=== PATIENT | female | born 1930 | race Caucasian/White ===

== ENCOUNTER 2016-12-07 03:47 | Inpatient (IN) | payer MEDICARE ==
[~2016-12-07] VITALS: Ht 167.6 cm; Wt 81.6 kg
[~2016-12-07 03:47] MED LIST: ALDACTONE25 M1 PO; AMIODARONE HCL200 MG PO; AMIODARONE HCL400 MG PO; ANUSOL-HC25 MG R; ASPIR-LOW81 MG PO; ASPIRIN ADULT L81 M1 PO; ASPIRIN EC325 MG; ASPIRIN325 MG PO; ASPIRIN81 M1 PO; BACTRIM 400 MG-1 TAB PO; BUMEX1 MG PO; CARDIZEM120 MG PO; CARDIZEM30 MG PO; CENTRUM SILVER1 TA1 PO; CENTRUM SINGLE400 IU; CENTRUM1 TAB PO; CIPROFLOXACIN500 MG PO; COUMADIN0.5 MG PO; COUMADIN2.5 M1 PO; COUMADIN3 M1 PO; COUMADIN5 M1 PO; COUMADIN5 M2 PO; COUMADIN6 M1 PO; COUMADIN6 M2 PO; COUMADIN6 MG PO; COZAAR100 MG PO; COZAAR50 MG; DILT-CD180 MG PO; DULCOLAX5 MG PO; FELODIPINE5 MG; FELODIPINE5 MG PO; INDERAL20 MG PO; INDERAL40 MG PO; K-DUR 20MEQ20 MEQ PO; LANTUS SOLOS100 U/ML SC; LANTUS100 U/ML SC; LANTUS100 U/ML SQ; LEVOTHYROXIN0.025 MG PO; LOMOTIL,LONOX 01 TAB PO; LOPRESSOR100 MG PO; LOSARTAN POTASS50 M1 PO; LOVASTATIN40 MG; LOVASTATIN40 MG PO; MACROBID100 M1 PO; MOM30 M1 PO; OSCAL,OYSTER S500 MG; Oscal,Oyster S500 MG PO; PHENERGAN25 M1 PO; PLENDIL5 MG PO; POTASSIUM20 MEQ PO; PRILOSEC20 MG PO; PROPAFENONE HC225 MG PO; PROPANOLOL; PROPRANOLOL HCL20 M1 PO; PYRIDIUM200 MG PO; SYNTHROID,LEVO25 MCG PO; TAMBOCOR100 MG PO; TYLENOL325 M1 PO; ULTRAM50 MG PO; VITAMIN D1000 IU PO; VITAMIN D2400 IU; VITAMIN D400 IU PO; VITAMIN D50000 I2; WARFARIN SODIU7.5 MG PO
[2016-12-07 03:49] VITALS: BP 147/71
[2016-12-07] MEDS ORDERED: BUMETANIDE1 MG PO (03:59)
[2016-12-07 04:19] LABS: BASO % 0.2 % (0.0-1.0); EOS # 0.2 10*3/uL (0.0-0.4); EOS % 1.5 % (1.0-4.0); HEMATOCRIT 42.3 % (37.0-47.0); HEMOGLOBIN 14.8 g/dl (12.0-16.0); LYMPH % 7.9 % (27.0-41.0); MEAN CELL VOLUME 88.7 fl (81.0-99.0); MEAN PLATELET VOLUME 13.2 fl (9.6-12.3); MONO # 0.9 10*3/uL (0.1-1.0); MONO % 7.1 % (3.0-9.0); NEUT # 10.2 10*3/uL (2.3-7.9); NEUT % 83.1 % (47.0-73.0); PLATELET COUNT AUTOMATED 208 10*3/uL (130-400); RED BLOOD COUNT 4.77 10*6/uL (4.10-5.10); RED CELL DISTRI WIDTH 14.1 % (0-14.5); WHITE BLOOD COUNT 12.3 10*3/uL (4.8-10.8)
[2016-12-07 05:06] LABS: BILIRUBIN NEGATIVE (NEGATIVE); BLOOD 1+ (NEGATIVE); CLARITY CLEAR (CLEAR); COLOR YELLOW (YELLOW); GLUCOSE NEGATIVE (NEGATIVE); KETONE TRACE (NEGATIVE); LEUKO ESTERASE NEGATIVE (NEGATIVE); NITRITE NEGATIVE (NEGATIVE); PROTEIN TRACE (NEGATIVE); UROBILINOGEN 0.2 E.U./dl (0.2-1.0)
[2016-12-07 05:09] LABS: ALBUMIN 3.5 gm/dl (3.1-4.5); BILIRUBIN, TOTAL 0.4 mg/dl (0.2-1.0); POTASSIUM 3.7 mmol/L (3.5-5.1); TOTAL PROTEIN 7.2 gm/dL (6.4-8.2)
[2016-12-07 05:11] LABS: EPITHELIAL CELLS 20-25
[2016-12-07 05:12] LABS: URINE REFLEX COMMENT YES (NO)
[2016-12-07 05:50] VITALS: BP 124/55
[2016-12-07 07:01] VITALS: BP 124/66
[2016-12-07 12:00] VITALS: BP 148/88
== END 2016-12-07 13:01 | disposition home or self-care (01) | DRG 392 ==
LOC: ED 03:47 → EDHOLD 05:33 → 4E 08:47
PROVIDERS: Emergency Medicine
DX: K52.9 Noninfective gastroenteritis and colitis, unspecified (principal); E10.22 Type 1 diabetes mellitus with diabetic chronic kidney disease; D68.69 Other thrombophilia; I13.0 Hypertensive heart and chronic kidney disease with heart failure and stage 1 through stage 4 chronic kidney disease, or unspecified chronic kidney disease; E10.65 Type 1 diabetes mellitus with hyperglycemia; N18.3 Chronic kidney disease, stage 3 (moderate); I50.32 Chronic diastolic (congestive) heart failure; I48.0 Paroxysmal atrial fibrillation; E78.5 Hyperlipidemia, unspecified; E55.9 Vitamin D deficiency, unspecified; K44.9 Diaphragmatic hernia without obstruction or gangrene; Z90.49 Acquired absence of other specified parts of digestive tract; Z90.710 Acquired absence of both cervix and uterus; Z95.0 Presence of cardiac pacemaker; Z88.1 Allergy status to other antibiotic agents; Z88.8 Allergy status to other drugs, medicaments and biological substances; Z88.2 Allergy status to sulfonamides; Z82.49 Family history of ischemic heart disease and other diseases of the circulatory system

== ENCOUNTER 2017-01-29 14:01 | Emergency (ER) | payer MEDICARE ==
[~2017-01-29] VITALS: Ht 160 cm; Wt 81.6 kg
[~2017-01-29 14:01] MED LIST changes: +BUMETANIDE1 MG PO
[2017-01-29 14:06] VITALS: BP 135/85
[2017-01-29 14:59] LABS: BASO % 0.3 % (0.0-1.0); EOS # 0.2 10*3/uL (0.0-0.4); EOS % 2.6 % (1.0-4.0); HEMATOCRIT 39.2 % (37.0-47.0); HEMOGLOBIN 13.2 g/dl (12.0-16.0); LYMPH # 1.2 10*3/uL (1.3-4.4); LYMPH % 19.1 % (27.0-41.0); MEAN CELL VOLUME 91.2 fl (81.0-99.0); MEAN CORPUSCULAR HGB 30.7 pg (27.0-31.0); MEAN CORPUSCULAR HGB CONC 33.7 g/dl (33.0-37.0); MEAN PLATELET VOLUME 10.6 fl (9.6-12.3); MONO # 0.5 10*3/uL (0.1-1.0); MONO % 8.1 % (3.0-9.0); NEUT # 4.5 10*3/uL (2.3-7.9); NEUT % 69.6 % (47.0-73.0); PLATELET COUNT AUTOMATED 145 10*3/uL (130-400); RED CELL DISTRI WIDTH 13.4 % (0-14.5); WHITE BLOOD COUNT 6.4 10*3/uL (4.8-10.8)
[2017-01-29 15:07] LABS: PROTHROMBIN TIME 34.1 SECONDS (9.0-12.4)
== END 2017-01-29 15:20 | disposition home or self-care (01) ==
LOC: ED 14:01
PROVIDERS: Physician Assistant
DX: R04.0 Epistaxis (principal); Z79.01 Long term (current) use of anticoagulants; Z95.0 Presence of cardiac pacemaker; Z90.49 Acquired absence of other specified parts of digestive tract; Z88.1 Allergy status to other antibiotic agents; Z88.2 Allergy status to sulfonamides; Z79.82 Long term (current) use of aspirin; Z79.899 Other long term (current) drug therapy

== ENCOUNTER → 2017-02-05 | Outpatient (CLI) | payer MEDICARE ==
[2017-02-05 09:50] LABS: BASO % 0.5 % (0.0-1.0); EOS # 0.2 10*3/uL (0.0-0.4); EOS % 3.4 % (1.0-4.0); HEMATOCRIT 43.1 % (37.0-47.0); HEMOGLOBIN 14.4 g/dl (12.0-16.0); LYMPH % 18.3 % (27.0-41.0); MEAN CELL VOLUME 91.7 fl (81.0-99.0); MEAN CORPUSCULAR HGB 30.6 pg (27.0-31.0); MEAN CORPUSCULAR HGB CONC 33.4 g/dl (33.0-37.0); MEAN PLATELET VOLUME 10.4 fl (9.6-12.3); MONO # 0.5 10*3/uL (0.1-1.0); MONO % 8.7 % (3.0-9.0); NEUT # 3.8 10*3/uL (2.3-7.9); NEUT % 68.7 % (47.0-73.0); PLATELET COUNT AUTOMATED 180 10*3/uL (130-400); RED CELL DISTRI WIDTH 13.5 % (0-14.5); WHITE BLOOD COUNT 5.5 10*3/uL (4.8-10.8)
[2017-02-05 10:10] LABS: HEMOGLOBIN A1c 8.6 % (4.8-5.6)
[2017-02-05 10:25] LABS: INTERNATIONAL NORM RATIO 2.3 (2.0-3.5); PROTHROMBIN TIME 25.7 SECONDS (9.0-12.4)
[2017-02-05 10:31] LABS: ALBUMIN 3.6 gm/dl (3.1-4.5); BILIRUBIN, TOTAL 0.5 mg/dl (0.2-1.0); POTASSIUM 4.5 mmol/L (3.5-5.1); TOTAL PROTEIN 7.9 gm/dL (6.4-8.2)
[2017-02-05 10:37] LABS: THYROID STIM HORMONE (HS) 1.9 uIU/ml (0.358-4.75)
== END ==
LOC: LAB 09:20
PROVIDERS: Nurse Practitioner Family
DX: E11.9 Type 2 diabetes mellitus without complications (principal); I10 Essential (primary) hypertension; I48.0 Paroxysmal atrial fibrillation; E03.9 Hypothyroidism, unspecified

== ENCOUNTER → 2017-03-03 | Outpatient (CLI) | payer MEDICARE ==
[2017-03-03 16:36] LABS: INTERNATIONAL NORM RATIO 2.5 (2.0-3.5); PROTHROMBIN TIME 27.5 SECONDS (9.0-12.4)
== END | disposition home or self-care (01) ==
LOC: LAB 15:06
PROVIDERS: Nurse Practitioner Family
DX: I48.91 Unspecified atrial fibrillation (principal)

== ENCOUNTER → 2017-04-07 | Outpatient (CLI) | payer MEDICARE ==
[2017-04-07 11:40] LABS: INTERNATIONAL NORM RATIO 2.1 (2.0-3.5)
== END | disposition home or self-care (01) ==
LOC: LAB 10:37
PROVIDERS: Nurse Practitioner Family
DX: I48.91 Unspecified atrial fibrillation (principal)

== ENCOUNTER → 2017-04-30 | Outpatient (CLI) | payer MEDICARE ==
[2017-04-30 11:05] LABS: INTERNATIONAL NORM RATIO 2.2 (2.0-3.5)
== END | disposition home or self-care (01) ==
LOC: LAB 10:13
PROVIDERS: Nurse Practitioner Family
DX: I48.0 Paroxysmal atrial fibrillation (principal); Z79.01 Long term (current) use of anticoagulants

== ENCOUNTER → 2017-05-16 | Outpatient (CLI) | payer MEDICARE ==
[2017-05-16 11:34] LABS: BILIRUBIN NEGATIVE (NEGATIVE); BLOOD TRACE-INTACT (NEGATIVE); CLARITY SL CLOUDY (CLEAR); COLOR YELLOW (YELLOW); GLUCOSE NEGATIVE (NEGATIVE); KETONE NEGATIVE (NEGATIVE); LEUKO ESTERASE NEGATIVE (NEGATIVE); NITRITE NEGATIVE (NEGATIVE); UROBILINOGEN 0.2 E.U./dl (0.2-1.0)
[2017-05-16 11:39] LABS: BASO % 0.6 % (0.0-1.0); EOS # 0.1 10*3/uL (0.0-0.4); EOS % 2.6 % (1.0-4.0); HEMATOCRIT 39.3 % (37.0-47.0); LYMPH # 1.1 10*3/uL (1.3-4.4); LYMPH % 22.2 % (27.0-41.0); MEAN CELL VOLUME 92.3 fl (81.0-99.0); MEAN CORPUSCULAR HGB 30.5 pg (27.0-31.0); MEAN CORPUSCULAR HGB CONC 33.1 g/dl (33.0-37.0); MEAN PLATELET VOLUME 10.1 fl (9.6-12.3); MONO # 0.4 10*3/uL (0.1-1.0); MONO % 8.9 % (3.0-9.0); NEUT # 3.3 10*3/uL (2.3-7.9); NEUT % 65.5 % (47.0-73.0); PLATELET COUNT AUTOMATED 159 10*3/uL (130-400); RED BLOOD COUNT 4.26 10*6/uL (4.10-5.10); RED CELL DISTRI WIDTH 13.5 % (0-14.5)
[2017-05-16 11:43] LABS: URINE CREATININE RANDOM 30.9 mg/dL
[2017-05-16 11:50] LABS: RBC 0-2 rbc/hpf (0-2)
[2017-05-16 12:07] LABS: ALBUMIN 3.6 gm/dl (3.1-4.5); CREATININE 1.44 mg/dL (0.55-1.02); PHOSPHOROUS 3.5 mg/dL (2.5-4.9); POTASSIUM 4.3 mmol/L (3.5-5.1)
[2017-05-16 12:57] LABS: PTH INTACT 107.4 pg/mL (14.0-72.0); VITAMIN D, 25-HYDROXY 32.8 ng/mL (30-100)
== END | disposition home or self-care (01) ==
LOC: LAB 11:08
PROVIDERS: Internal Medicine Nephrology
DX: N18.3 Chronic kidney disease, stage 3 (moderate) (principal); N25.81 Secondary hyperparathyroidism of renal origin; Z79.899 Other long term (current) drug therapy

== ENCOUNTER → 2017-05-20 | Outpatient (CLI) | payer MEDICARE ==
[2017-05-20 08:22] LABS: BASO % 0.8 % (0.0-1.0); EOS # 0.2 10*3/uL (0.0-0.4); EOS % 3.1 % (1.0-4.0); HEMATOCRIT 38.9 % (37.0-47.0); HEMOGLOBIN 13.1 g/dl (12.0-16.0); LYMPH % 19.5 % (27.0-41.0); MEAN CELL VOLUME 91.5 fl (81.0-99.0); MEAN CORPUSCULAR HGB 30.8 pg (27.0-31.0); MEAN CORPUSCULAR HGB CONC 33.7 g/dl (33.0-37.0); MEAN PLATELET VOLUME 10.4 fl (9.6-12.3); MONO # 0.5 10*3/uL (0.1-1.0); MONO % 10.4 % (3.0-9.0); NEUT # 3.4 10*3/uL (2.3-7.9); NEUT % 65.8 % (47.0-73.0); PLATELET COUNT AUTOMATED 156 10*3/uL (130-400); RED BLOOD COUNT 4.25 10*6/uL (4.10-5.10); RED CELL DISTRI WIDTH 13.2 % (0-14.5); WHITE BLOOD COUNT 5.2 10*3/uL (4.8-10.8)
[2017-05-20 08:54] LABS: ALBUMIN 3.6 gm/dl (3.1-4.5); CREATININE 1.28 mg/dL (0.55-1.02); POTASSIUM 4.3 mmol/L (3.5-5.1); TOTAL PROTEIN 7.6 gm/dL (6.4-8.2)
[2017-05-20 09:03] LABS: THYROID STIM HORMONE (HS) 2.24 uIU/ml (0.358-4.75)
[2017-05-20 09:14] LABS: INTERNATIONAL NORM RATIO 3.1 (2.0-3.5)
== END | disposition home or self-care (01) ==
LOC: LAB 08:02
PROVIDERS: Nurse Practitioner Family
DX: I10 Essential (primary) hypertension (principal); E11.9 Type 2 diabetes mellitus without complications; E03.9 Hypothyroidism, unspecified; E78.4 Other hyperlipidemia; I48.0 Paroxysmal atrial fibrillation; Z79.01 Long term (current) use of anticoagulants

== ENCOUNTER → 2017-06-30 | Outpatient (CLI) | payer MEDICARE ==
[2017-06-30 11:29] LABS: INTERNATIONAL NORM RATIO 1.9 (2.0-3.5)
== END | disposition home or self-care (01) ==
LOC: LAB 10:34
PROVIDERS: Nurse Practitioner Family
DX: I48.0 Paroxysmal atrial fibrillation (principal); Z79.01 Long term (current) use of anticoagulants

== ENCOUNTER → 2017-08-05 | Outpatient (CLI) | payer MEDICARE ==
[2017-08-05 13:25] LABS: INTERNATIONAL NORM RATIO 2.2 (2.0-3.5)
== END | disposition home or self-care (01) ==
LOC: LAB 12:41
PROVIDERS: Nurse Practitioner Family
DX: I48.0 Paroxysmal atrial fibrillation (principal)

== ENCOUNTER → 2017-08-29 | Outpatient (CLI) | payer MEDICARE ==
[2017-08-29 10:28] LABS: BASO % 0.3 % (0.0-1.0); EOS # 0.2 10*3/uL (0.0-0.4); EOS % 3.1 % (1.0-4.0); HEMATOCRIT 44.2 % (37.0-47.0); HEMOGLOBIN 14.5 g/dl (12.0-16.0); LYMPH # 1.2 10*3/uL (1.3-4.4); LYMPH % 18.3 % (27.0-41.0); MEAN CELL VOLUME 92.5 fl (81.0-99.0); MEAN CORPUSCULAR HGB 30.3 pg (27.0-31.0); MEAN CORPUSCULAR HGB CONC 32.8 g/dl (33.0-37.0); MEAN PLATELET VOLUME 10.6 fl (9.6-12.3); MONO # 0.6 10*3/uL (0.1-1.0); MONO % 9.2 % (3.0-9.0); NEUT # 4.5 10*3/uL (2.3-7.9); NEUT % 68.8 % (47.0-73.0); PLATELET COUNT AUTOMATED 189 10*3/uL (130-400); RED BLOOD COUNT 4.78 10*6/uL (4.10-5.10); RED CELL DISTRI WIDTH 13.4 % (0-14.5); WHITE BLOOD COUNT 6.5 10*3/uL (4.8-10.8)
[2017-08-29 10:51] LABS: INTERNATIONAL NORM RATIO 2.1 (2.0-3.5)
[2017-08-29 10:55] LABS: ALBUMIN 3.7 gm/dl (3.1-4.5); CREATININE 1.45 mg/dL (0.55-1.02); POTASSIUM 4.2 mmol/L (3.5-5.1); TOTAL PROTEIN 8.1 gm/dL (6.4-8.2)
== END | disposition home or self-care (01) ==
LOC: LAB 09:37
PROVIDERS: Nurse Practitioner Family
DX: E11.9 Type 2 diabetes mellitus without complications (principal); E78.4 Other hyperlipidemia; I10 Essential (primary) hypertension; Z79.01 Long term (current) use of anticoagulants; I48.1 Persistent atrial fibrillation

== ENCOUNTER 2017-09-23 12:21 | Inpatient (IN) | payer MEDICARE ==
[~2017-09-23] VITALS: Ht 157.4 cm; Wt 81.8 kg
[~2017-09-23 12:21] MED LIST changes: +CENTRUM SILVER1 EAC2 PO; +LANTUS SOL100 UNIT/1 SC
[2017-09-23 12:27] VITALS: BP 126/93
[2017-09-23 12:51] LABS: BILIRUBIN NEGATIVE (NEGATIVE); BLOOD TRACE-INTACT (NEGATIVE); CLARITY CLEAR (CLEAR); COLOR STRAW (YELLOW); GLUCOSE NEGATIVE (NEGATIVE); KETONE NEGATIVE (NEGATIVE); LEUKO ESTERASE NEGATIVE (NEGATIVE); NITRITE NEGATIVE (NEGATIVE); SPECIFIC GRAVITY <= 1.005 (1.005-1.030); UROBILINOGEN 0.2 E.U./dl (0.2-1.0)
[2017-09-23 13:05] LABS: RBC 0-2 rbc/hpf (0-2); WBC 0-2 wbc/hpf (0-5)
[2017-09-23 13:07] LABS: BASO % 0.4 % (0.0-1.0); EOS # 0.2 10*3/uL (0.0-0.4); HEMATOCRIT 40.3 % (37.0-47.0); HEMOGLOBIN 13.7 g/dl (12.0-16.0); LYMPH # 1.1 10*3/uL (1.3-4.4); MEAN CELL VOLUME 91.4 fl (81.0-99.0); MEAN CORPUSCULAR HGB 31.1 pg (27.0-31.0); MEAN PLATELET VOLUME 10.1 fl (9.6-12.3); MONO # 0.6 10*3/uL (0.1-1.0); MONO % 7.7 % (3.0-9.0); NEUT # 5.7 10*3/uL (2.3-7.9); NEUT % 74.6 % (47.0-73.0); PLATELET COUNT AUTOMATED 176 10*3/uL (130-400); RED BLOOD COUNT 4.41 10*6/uL (4.10-5.10); RED CELL DISTRI WIDTH 13.4 % (0-14.5); WHITE BLOOD COUNT 7.6 10*3/uL (4.8-10.8)
[2017-09-23 13:34] LABS: ALBUMIN 3.6 gm/dl (3.1-4.5); ALKALINE PHOSPHATASE 96 U/L (45-117); BUN 21 mg/dl (7-24); CHLORIDE 101 mmol/L (98-107); LIPASE 108 U/L (73-393); POTASSIUM 4.1 mmol/L (3.5-5.1); SGOT/AST 19 IU/L (3-35); SGPT/ALT 22 U/L (12-78); SODIUM 136 mmol/L (136-145)
[2017-09-23 13:39] LABS: TROPONIN I < 0.015 ng/ml (<0.045)
[2017-09-23 14:32] VITALS: BP 151/74
[2017-09-23 15:24] LABS: INTERNATIONAL NORM RATIO 2.1 (2.0-3.5)
[2017-09-23 16:00] VITALS: BP 163/69
[2017-09-23 20:00] VITALS: BP 120/60
[2017-09-24] VITALS: BP 132/50
[2017-09-24 08:00] VITALS: BP 140/78
[2017-09-24 08:35] LABS: BASO % 0.5 % (0.0-1.0); EOS # 0.2 10*3/uL (0.0-0.4); HEMATOCRIT 43.2 % (37.0-47.0); HEMOGLOBIN 14.4 g/dl (12.0-16.0); LYMPH # 1.3 10*3/uL (1.3-4.4); LYMPH % 17.1 % (27.0-41.0); MEAN CELL VOLUME 91.9 fl (81.0-99.0); MEAN CORPUSCULAR HGB 30.6 pg (27.0-31.0); MEAN CORPUSCULAR HGB CONC 33.3 g/dl (33.0-37.0); MEAN PLATELET VOLUME 10.2 fl (9.6-12.3); MONO # 0.6 10*3/uL (0.1-1.0); MONO % 8.5 % (3.0-9.0); NEUT # 5.1 10*3/uL (2.3-7.9); NEUT % 70.6 % (47.0-73.0); PLATELET COUNT AUTOMATED 196 10*3/uL (130-400); RED CELL DISTRI WIDTH 13.6 % (0-14.5); WHITE BLOOD COUNT 7.3 10*3/uL (4.8-10.8)
[2017-09-24 08:52] LABS: ALBUMIN 3.6 gm/dl (3.1-4.5); CREATININE 1.39 mg/dL (0.55-1.02); PHOSPHOROUS 2.9 mg/dL (2.5-4.9); TOTAL PROTEIN 7.8 gm/dL (6.4-8.2)
[2017-09-24 08:53] LABS: FREE T4 1.27 ng/dl (0.76-1.46)
[2017-09-24 08:58] LABS: THYROID STIM HORMONE (HS) 1.51 uIU/ml (0.358-4.75)
[2017-09-24 09:36] LABS: VITAMIN D, 25-HYDROXY 30.5 ng/mL (30-100)
[2017-09-24 12:00] VITALS: BP 138/82
== END 2017-09-24 15:43 | disposition home or self-care (01) | DRG 392 ==
LOC: ED 12:21 → EDHOLD 13:49 → 4E 13:49
PROVIDERS: Physician Assistant; Registered Nurse
DX: K21.9 Gastro-esophageal reflux disease without esophagitis (principal); E44.0 Moderate protein-calorie malnutrition; E10.22 Type 1 diabetes mellitus with diabetic chronic kidney disease; E10.65 Type 1 diabetes mellitus with hyperglycemia; I48.1 Persistent atrial fibrillation; I50.9 Heart failure, unspecified; I13.0 Hypertensive heart and chronic kidney disease with heart failure and stage 1 through stage 4 chronic kidney disease, or unspecified chronic kidney disease; I20.8 Other forms of angina pectoris; E78.00 Pure hypercholesterolemia, unspecified; E03.9 Hypothyroidism, unspecified; E78.5 Hyperlipidemia, unspecified; N18.3 Chronic kidney disease, stage 3 (moderate); K59.00 Constipation, unspecified; Z60.2 Problems related to living alone; F41.9 Anxiety disorder, unspecified; E55.9 Vitamin D deficiency, unspecified; K44.9 Diaphragmatic hernia without obstruction or gangrene; R55 Syncope and collapse; Z95.0 Presence of cardiac pacemaker; Z88.2 Allergy status to sulfonamides; Z88.8 Allergy status to other drugs, medicaments and biological substances; Z88.1 Allergy status to other antibiotic agents; Z79.899 Other long term (current) drug therapy; Z79.82 Long term (current) use of aspirin; Z79.4 Long term (current) use of insulin; Z90.49 Acquired absence of other specified parts of digestive tract; Z90.710 Acquired absence of both cervix and uterus; Z79.01 Long term (current) use of anticoagulants; Z82.49 Family history of ischemic heart disease and other diseases of the circulatory system; Z83.3 Family history of diabetes mellitus; Z68.33 Body mass index [BMI] 33.0-33.9, adult

== ENCOUNTER → 2017-09-30 | Outpatient (CLI) | payer MEDICARE ==
[2017-09-30 14:16] LABS: INTERNATIONAL NORM RATIO 1.9 (2.0-3.5)
== END | disposition home or self-care (01) ==
LOC: LAB 13:48
PROVIDERS: Nurse Practitioner Family
DX: I48.0 Paroxysmal atrial fibrillation (principal)

== ENCOUNTER → 2017-11-24 | Outpatient (CLI) | payer MEDICARE ==
[2017-11-24 13:25] LABS: INTERNATIONAL NORM RATIO 2.7 (2.0-3.5)
== END | disposition home or self-care (01) ==
LOC: LAB 11:55
PROVIDERS: Nurse Practitioner Family
DX: I48.0 Paroxysmal atrial fibrillation (principal)

== ENCOUNTER 2017-12-09 18:19 | Emergency (ER) | payer MEDICARE ==
[~2017-12-09] VITALS: Wt 79.8 kg
[2017-12-09 18:20] VITALS: BP 98/78
[2017-12-09 19:01] LABS: HEMATOCRIT 41.4 % (37.0-47.0); MEAN CELL VOLUME 90.2 fl (81.0-99.0); MEAN CORPUSCULAR HGB 30.5 pg (27.0-31.0); MEAN CORPUSCULAR HGB CONC 33.8 g/dl (33.0-37.0); MEAN PLATELET VOLUME 10.1 fl (9.6-12.3); PLATELET COUNT AUTOMATED 173 10*3/uL (130-400); RED BLOOD COUNT 4.59 10*6/uL (4.10-5.10); RED CELL DISTRI WIDTH 13.7 % (0-14.5); WHITE BLOOD COUNT 11.3 10*3/uL (4.8-10.8)
[2017-12-09 19:14] LABS: ALBUMIN 4.1 gm/dl (3.1-4.5); CREATININE 1.64 mg/dL (0.55-1.02); POTASSIUM 4.5 mmol/L (3.5-5.1); TOTAL PROTEIN 7.9 gm/dL (6.4-8.2)
[2017-12-09 19:18] LABS: INTERNATIONAL NORM RATIO 2.9 (2.0-3.5)
[2017-12-09 19:35] LABS: BILIRUBIN NEGATIVE (NEGATIVE); BLOOD 1+ (NEGATIVE); CLARITY CLEAR (CLEAR); COLOR YELLOW (YELLOW); GLUCOSE 3+ (NEGATIVE); KETONE NEGATIVE (NEGATIVE); LEUKO ESTERASE NEGATIVE (NEGATIVE); NITRITE NEGATIVE (NEGATIVE); UROBILINOGEN 0.2 E.U./dl (0.2-1.0)
[2017-12-09 19:38] LABS: TOTAL CELLS COUNTED 100 #CELLS
[2017-12-09 19:39] LABS: PLATELET SUFFICIENCY NORMAL (NORMAL)
[2017-12-09 20:21] LABS: BACTERIA TRACE; RBC 0-2 rbc/hpf (0-2); WBC 0-2 wbc/hpf (0-5)
== END 2017-12-09 21:40 | disposition home or self-care (01) ==
LOC: ED 18:19
PROVIDERS: Nurse Practitioner Family
DX: I13.0 Hypertensive heart and chronic kidney disease with heart failure and stage 1 through stage 4 chronic kidney disease, or unspecified chronic kidney disease (principal); E10.22 Type 1 diabetes mellitus with diabetic chronic kidney disease; N18.9 Chronic kidney disease, unspecified; I50.9 Heart failure, unspecified; E03.9 Hypothyroidism, unspecified; I48.91 Unspecified atrial fibrillation; Z95.0 Presence of cardiac pacemaker; Z90.710 Acquired absence of both cervix and uterus; Z90.49 Acquired absence of other specified parts of digestive tract; Z98.890 Other specified postprocedural states; Z79.899 Other long term (current) drug therapy; Z79.82 Long term (current) use of aspirin; Z79.01 Long term (current) use of anticoagulants; Z88.2 Allergy status to sulfonamides; Z88.1 Allergy status to other antibiotic agents; Z88.8 Allergy status to other drugs, medicaments and biological substances; Z79.4 Long term (current) use of insulin

== ENCOUNTER → 2018-01-08 | Outpatient (CLI) | payer MEDICARE ==
[2018-01-08 17:32] LABS: INTERNATIONAL NORM RATIO 2.2 (2.0-3.5)
== END ==
LOC: LAB 16:05
DX: Z51.81 Encounter for therapeutic drug level monitoring (principal); Z79.01 Long term (current) use of anticoagulants

== ENCOUNTER → 2018-02-19 | Outpatient (CLI) | payer MEDICARE ==
[~2018-02-19] MED LIST changes: +BASAG SOL SQ
[2018-02-19 10:11] LABS: CREATININE 1.49 mg/dL (0.55-1.02)
== END | disposition home or self-care (01) ==
LOC: LAB 09:32
PROVIDERS: Nurse Practitioner Family
DX: I10 Essential (primary) hypertension (principal)

== ENCOUNTER 2018-05-26 23:28 | Inpatient (IN) | payer MEDICARE ==
[~2018-05-26] VITALS: Ht 157.5 cm; Wt 80.5 kg
--- NOTE | ~2018-05-26 | EKG ---
[place], [place] ELECTROCARDIOGRAM REPORT NAME: LAKISHA ERICKSON UNIT #: [id number] ROOM: 421 DOCTOR: DAE DRAFT REPORT BIRTHDATE: [birth year] [facility] Test Date: 2018-05-27 Test Time: 02:49:45 Pat Name: LAKISHA ERICKSON Department: Room: 421 Gender: F Blocker Heated Metal Forms: : 1930 Requested By: JU CABA Order Number: [id number] Reading MD: Cristobal Sanford MD Measurements Intervals [place] Rate: 82 P: [place]: QRS: -12 QRSD: 89 T: -52 QT: 403 QTc: 471 Interpretive Statements Afib/flut and V-paced complexes No further rhythm analysis attempted due to paced rhythm Nonspecific T-wave abnormality, possibly due to paced rhythm Electronically Signed On 05-27-2018 17:18:26 PDT by Cristobal Sanford MD CM:EKGRPT:ELECTROCARDIOGRAM REPORT [id number] JU CABA EPIPHANY DRAFT REPORT JU CABA
[2018-05-26 23:29] VITALS: BP 156/83
[2018-05-27 01:02] LABS: BASO % 0.2 % (0.0-1.0); EOS # 0.1 10*3/uL (0.0-0.4); HEMATOCRIT 42.7 % (37.0-47.0); HEMOGLOBIN 14.3 g/dl (12.0-16.0); LYMPH # 0.6 10*3/uL (1.3-4.4); LYMPH % 5.5 % (27.0-41.0); MEAN CORPUSCULAR HGB 30.8 pg (27.0-31.0); MEAN CORPUSCULAR HGB CONC 33.5 g/dl (33.0-37.0); MONO # 0.8 10*3/uL (0.1-1.0); MONO % 6.9 % (3.0-9.0); NEUT # 9.5 10*3/uL (2.3-7.9); NEUT % 86.1 % (47.0-73.0); PLATELET COUNT AUTOMATED 155 10*3/uL (130-400); RED BLOOD COUNT 4.64 10*6/uL (4.10-5.10); RED CELL DISTRI WIDTH 13.4 % (0-14.5)
[2018-05-27 01:20] LABS: ALBUMIN 3.5 gm/dl (3.1-4.5); CREATININE 1.51 mg/dL (0.55-1.02); POTASSIUM 3.9 mmol/L (3.5-5.1); TOTAL PROTEIN 7.1 gm/dL (6.4-8.2)
[2018-05-27] MEDS ORDERED: ASPIR LOW81 MG PO (02:42)
[2018-05-27] MEDS ORDERED: BASAG SOL SQ (02:42)
[2018-05-27] MEDS ORDERED: BUMETANIDE1 MG PO (02:43)
[2018-05-27] MEDS ORDERED: CARTIA XT180 MG PO (02:44)
[2018-05-27] MEDS ORDERED: LOPRESSOR100 M1 PO (02:46)
[2018-05-27] MEDS ORDERED: LEVOTHYROXINE50 MCG PO (02:46)
[2018-05-27] MEDS ORDERED: MULTIVITAMINS1 EAC5 PO (02:48)
[2018-05-27] MEDS ORDERED: KLOR-CON M1010 ME1 PO (02:49)
[2018-05-27] MEDS ORDERED: VITAMIN D-32000 UNIT PO (02:49)
[2018-05-27] MEDS ORDERED: COUMADIN3 M1 PO (02:50)
[2018-05-27 03:29] LABS: BILIRUBIN NEGATIVE (NEGATIVE); BLOOD TRACE-INTACT (NEGATIVE); CLARITY CLEAR (CLEAR); COLOR YELLOW (YELLOW); GLUCOSE NEGATIVE (NEGATIVE); KETONE NEGATIVE (NEGATIVE); LEUKO ESTERASE TRACE (NEGATIVE); NITRITE NEGATIVE (NEGATIVE); UROBILINOGEN 0.2 E.U./dl (0.2-1.0)
[2018-05-27 03:38] LABS: BACTERIA TRACE; EPITHELIAL CELLS 15-20
[2018-05-27 04:30] VITALS: BP 128/60
[2018-05-27] MEDS ORDERED: D3-20002000 UNIT PO (04:54)
[2018-05-27] MEDS ORDERED: FOLGARD TABLET1 EACH PO (04:54)
[2018-05-27 06:24] LABS: BASO % 0.1 % (0.0-1.0); EOS % 0.2 % (1.0-4.0); HEMATOCRIT 37.2 % (37.0-47.0); HEMOGLOBIN 12.6 g/dl (12.0-16.0); LYMPH # 0.8 10*3/uL (1.3-4.4); LYMPH % 9.7 % (27.0-41.0); MEAN CELL VOLUME 92.1 fl (81.0-99.0); MEAN CORPUSCULAR HGB 31.2 pg (27.0-31.0); MEAN CORPUSCULAR HGB CONC 33.9 g/dl (33.0-37.0); MEAN PLATELET VOLUME 10.7 fl (9.6-12.3); MONO # 0.4 10*3/uL (0.1-1.0); MONO % 4.4 % (3.0-9.0); NEUT # 7.1 10*3/uL (2.3-7.9); NEUT % 85.4 % (47.0-73.0); PLATELET COUNT AUTOMATED 139 10*3/uL (130-400); RED BLOOD COUNT 4.04 10*6/uL (4.10-5.10); RED CELL DISTRI WIDTH 13.4 % (0-14.5); WHITE BLOOD COUNT 8.3 10*3/uL (4.8-10.8)
[2018-05-27 06:40] LABS: INTERNATIONAL NORM RATIO 2.4 (2.0-3.5)
[2018-05-27 06:42] LABS: POTASSIUM 4.5 mmol/L (3.5-5.1)
[2018-05-27 06:50] LABS: CREATININE 1.41 mg/dL (0.55-1.02)
[2018-05-27 06:53] LABS: PHOSPHOROUS 2.7 mg/dL (2.5-4.9); THYROID STIM HORMONE (HS) 1.04 uIU/ml (0.358-4.75)
[2018-05-27 08:00] VITALS: BP 132/62
[2018-05-27 12:00] VITALS: BP 102/53
[2018-05-27 15:44] VITALS: BP 109/44
[2018-05-27 20:00] VITALS: BP 119/42
[2018-05-28] VITALS: BP 116/58
[2018-05-28 05:58] LABS: CREATININE 1.3 mg/dL (0.55-1.02); POTASSIUM 4.1 mmol/L (3.5-5.1)
[2018-05-28 06:12] LABS: BASO % 0.6 % (0.0-1.0); EOS # 0.2 10*3/uL (0.0-0.4); EOS % 3.4 % (1.0-4.0); HEMOGLOBIN 13.1 g/dl (12.0-16.0); LYMPH # 1.4 10*3/uL (1.3-4.4); LYMPH % 26.8 % (27.0-41.0); MEAN CELL VOLUME 94.1 fl (81.0-99.0); MEAN CORPUSCULAR HGB 30.8 pg (27.0-31.0); MEAN CORPUSCULAR HGB CONC 32.8 g/dl (33.0-37.0); MEAN PLATELET VOLUME 10.7 fl (9.6-12.3); MONO # 0.5 10*3/uL (0.1-1.0); MONO % 8.9 % (3.0-9.0); NEUT # 3.2 10*3/uL (2.3-7.9); NEUT % 60.1 % (47.0-73.0); PLATELET COUNT AUTOMATED 139 10*3/uL (130-400); RED BLOOD COUNT 4.25 10*6/uL (4.10-5.10); RED CELL DISTRI WIDTH 13.7 % (0-14.5); WHITE BLOOD COUNT 5.3 10*3/uL (4.8-10.8)
[2018-05-28 08:00] VITALS: BP 138/72
== END 2018-05-28 14:09 | disposition home health service (06) | DRG 392 ==
LOC: ED 23:28 → EDHOLD 05-27 03:36 → 4E 05-27 03:36
PROVIDERS: Internal Medicine; Nurse Practitioner; Student in an Organized Health Care Education/Training Program
DX: K52.9 Noninfective gastroenteritis and colitis, unspecified (principal); I50.32 Chronic diastolic (congestive) heart failure; I13.0 Hypertensive heart and chronic kidney disease with heart failure and stage 1 through stage 4 chronic kidney disease, or unspecified chronic kidney disease; Z79.01 Long term (current) use of anticoagulants; E86.0 Dehydration; R53.1 Weakness; N18.3 Chronic kidney disease, stage 3 (moderate); R31.21 Asymptomatic microscopic hematuria; D72.9 Disorder of white blood cells, unspecified; E10.65 Type 1 diabetes mellitus with hyperglycemia; E03.9 Hypothyroidism, unspecified; F41.9 Anxiety disorder, unspecified; E66.9 Obesity, unspecified; E10.22 Type 1 diabetes mellitus with diabetic chronic kidney disease; I48.2 Chronic atrial fibrillation; E78.5 Hyperlipidemia, unspecified; E55.9 Vitamin D deficiency, unspecified; Z95.0 Presence of cardiac pacemaker; Z68.32 Body mass index [BMI] 32.0-32.9, adult; Z88.1 Allergy status to other antibiotic agents; Z88.2 Allergy status to sulfonamides; Z90.49 Acquired absence of other specified parts of digestive tract; Z90.710 Acquired absence of both cervix and uterus; Z82.49 Family history of ischemic heart disease and other diseases of the circulatory system; Z83.3 Family history of diabetes mellitus; Z79.82 Long term (current) use of aspirin; Z79.899 Other long term (current) drug therapy

== ENCOUNTER 2018-08-01 02:25 | Inpatient (IN) | payer MEDICARE ==
[~2018-08-01] VITALS: Ht 160 cm; Wt 79.1 kg
--- NOTE | ~2018-08-01 | PR ---
[place], [place] PROGRESS NOTE NAME: LAKISHA ERICKSON UNIT #: [id number] ROOM: 528 DOCTOR: BONNIE ALBRECHT MD BIRTHDATE: [birth year] DOS: 08/02/2018 CARDIOLOGY PROGRESS NOTE SUBJECTIVE: The patient was seen at her bedside today, 08/02/2018, with multiple family members in attendance. She tells me that she has felt well since admission. She has had no further chest pain, although she is anxious that it could come back. PHYSICAL EXAMINATION: VITAL SIGNS: Her pulse is 77 and irregularly irregular, blood pressure is 152/68. She is afebrile. She weighs 79.1 kg and has a body mass index of 30.9. NECK: Supple. She has no jugular distention. Carotids are full. LUNGS: Respirations are unlabored. CHEST: Clear. HEART: Has an irregularly irregular rhythm without murmurs or gallops. ABDOMEN: Soft. EXTREMITIES: Showed no edema. IMPRESSIONS: 1. Transient precordial chest pain. 2. No evidence for acute myocardial infarction. 3. Type 2 diabetes mellitus for over 20 years. 4. Essential hypertension. PLAN: We will proceed with a pharmacologic stress test. Further recommendations will depend upon the results of the stress test. I thank the hospitalist physicians for asking our advice regarding her care. BONNIE ALBRECHT MD CM:PNTRANS [id number] BONNIE ALBRECHT MD 08/03/18 0825 interface
--- NOTE | ~2018-08-01 | EKG ---
[place], [place] ELECTROCARDIOGRAM REPORT NAME: LAKISHA ERICKSON UNIT #: [id number] ROOM: 528 DOCTOR: DAE DRAFT REPORT BIRTHDATE: [birth year] [facility] [place] Test Date: 2018-08-01 Test Time: 05:45:49 Pat Name: LAKISHA ERICKSON Department: Room: 528 Gender: F Orthopedic Designer: Randall Preciado : 1930 Requested By: MEAGAN KATE Order Number: [id number] Reading MD: Primo Wilson MD Measurements Intervals [place] Rate: 77 P: NE: QRS: -6 QRSD: 90 T: -87 QT: 407 QTc: 461 Interpretive Statements Afib/flut and V-paced complexes No further rhythm analysis attempted due to paced rhythm Nonspecific T abnormalities, lateral leads Compared to ECG 06/13/2018 00:34:44 No significant changes Electronically Signed On 08-03-2018 8:11:12 PST by Primo Wilson MD CM:EKGRPT:ELECTROCARDIOGRAM REPORT [id number] MEAGAN PEARL DRAFT REPORT MEAGAN KATE MD
--- NOTE | ~2018-08-01 | CON ---
[place], [place] REPORT OF CONSULTATION NAME: LAKISHA ERICKSON UNIT #: [id number] ROOM: 528 DOCTOR: BONNIE ALBRECHT MD BIRTHDATE: [birth year] DOS: 08/01/2018 REASON FOR CONSULTATION: Chest discomfort. HISTORY OF PRESENT ILLNESS: The patient is an 87-year-old woman who was previously followed by the [facility] drupal programmer. She has a long history of atrial fibrillation. According to records from 2013, she had been on multiple antiarrhythmic drugs including propafenone, flecainide, and amiodarone, but did not maintain sinus rhythm. She is now felt to be in permanent atrial fibrillation and is on warfarin for stroke prophylaxis. According to their notes from 2013, she was never documented as having coronary artery disease. She tells me that she has had stress test in the distant past and none of them showed any problems. She tells me that she does have a history of ankle swelling and does have a history of diastolic congestive heart failure. She was placed on bumetanide 1 mg daily, but states that since she has been on that drug she has felt poorly. She states she is always thirsty and has to drink 64 ounces of water a day or more to keep from becoming dehydrated. Lately, she has been under considerable stress. She has had Chihuahua for the last 14 years and he has become ill. He is not eating properly and she is afraid that he might not survive. Because of this, she was spending a lot of time taking care of her dog and neglected herself. She stated that she felt poorly yesterday. She felt weak and possibly dehydrated. She drank some danilo reta and then felt tight in her chest. When this did not immediately resolve, she called emergency medical services. While she was waiting for them, she belched and did feel better. When EMS arrived, they did give her IV fluids and she felt even better after that, but still felt that she would rather come to the hospital to be checked. Since she has been here, her electrocardiogram has shown atrial fibrillation, but no acute ST or T-wave changes. She does have occasional paced beats. Her serial troponin levels have been normal and her chest discomfort has resolved. PAST MEDICAL HISTORY: Includes: 1. Atrial fibrillation present for at least 4-5 years. The patient has failed attempts at cardioversion and is now felt to be in permanent atrial fibrillation. 2. 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 Device manufacture is not yet known. This has been followed by the [facility] drupal programmer. 3. Chronic diastolic heart failure. 4. Chronic kidney disease. 5. Essential hypertension. 6. Hypothyroidism, on replacement. 7. Type 2 diabetes mellitus, on insulin since about age 66. 8. Status post cholecystectomy. 9. No history of cigarette abuse. 10. Most recent stress test for which we have records was from 02/2011 and showed normal myocardial perfusion with ejection fraction of 73%. [place], [place] REPORT OF CONSULTATION NAME: LAKISHA ERICKSON UNIT #: [id number] ROOM: 528 DOCTOR: BONNIE ALBRECHT MD BIRTHDATE: [birth year] 11. Echocardiogram 09/24/2017, normal left ventricular size with mild concentric left ventricular hypertrophy, ejection fraction 70%, mild left atrial enlargement, aortic sclerosis without stenosis, moderate mitral insufficiency, moderate tricuspid insufficiency. MEDICATIONS: Prior to admission, cholecalciferol 2000 units daily, diltiazem CD 180 mg daily, levothyroxine 25 mcg daily, metoprolol tartrate 100 mg b.i.d., multivitamin daily, warfarin 3 mg daily to maintain an INR between 2 and 3, Lantus insulin 46 units subcutaneously at bedtime, aspirin 81 mg per day, bumetanide 1 mg daily and potassium 10 mEq daily. ALLERGIES: THE PATIENT LISTS ALLERGIES TO SULFA DRUGS, CEPHALEXIN, CIPROFLOXACIN, AND TRIMETHOPRIM. FAMILY HISTORY: Negative for early coronary artery disease. REVIEW OF SYSTEMS: The patient denies diplopia or loss of vision. She denies lightheadedness or syncope today, but did feel weak and lightheaded yesterday. She also had a dry mouth and felt dehydrated. She denied nausea or vomiting. She did have some chest heaviness yesterday that resolved when she was given IV fluids. She denies fevers, chills, sweats or recent weight change. She denies cough, hemoptysis or hematemesis. She denies any focal weakness or syncope. She denies change in bowel or bladder habits. She denies blood in her stools or urine. She denies any skin rashes. She does have occasional ankle edema, although not for some time. The remainder of the review of systems is negative except as noted above. SOCIAL HISTORY: The patient is a and lives alone. She does have a Chihuahua that she has cared for the last 14 years and is under considerable stress lately because the dog is ill. She does not smoke or consume alcohol. PHYSICAL EXAMINATION: GENERAL: The patient is a pleasant elderly white woman who is awake, alert and oriented. VITAL SIGNS: Pulse is 70 and irregularly irregular. Blood pressure is 143/70. She is afebrile. She weighs 79.1 kilograms and body mass index of 30.9. HEENT: Normocephalic and atraumatic. Extraocular muscles are intact. Sclerae are clear. Pupils equal, round and react to light. The oral mucosa is moist. Tongue is midline. NECK: Supple. She has no jugular distention. Carotids are full. There are no bruits. She has no neck or supraclavicular masses and no thyromegaly. RESPIRATORY: Respirations are unlabored. Her chest is clear to auscultation and percussion. She has no presacral edema or chest wall tenderness. CARDIOVASCULAR: Her heart has an irregularly irregular rhythm without murmurs or gallops. The PMI is not displaced. There is no precordial heave, lift or thrill. ABDOMEN: Soft and normally active without masses, organomegaly or bruits. EXTREMITIES: Showed no edema. Peripheral pulses are easily palpated in the feet. She does have some varicose veins on her legs. There are no obvious skin rashes. [place], [place] REPORT OF CONSULTATION NAME: LAKISHA ERICKSON UNIT #: [id number] ROOM: 528 DOCTOR: BONNIE ALBRECHT MD BIRTHDATE: [birth year] I reviewed her electrocardiograms, which showed atrial fibrillation with an occasional ventricular premature contraction and occasional ventricular paced beats. She has nonspecific ST and T-wave changes, but no acute ST elevation or depression. Serial troponin levels are normal. Hemoglobin is 14.4, white count 6400. INR is 1.9. Sodium is 139, potassium 3.7, chloride 104, CO2 of 28, BUN 25, creatinine 1.58. Urinalysis is positive for 1+ protein. She has trace hematuria, 2+ leukocyte esterase, 1+ urine bacteria. IMPRESSION: Transient precordial chest pain. The patient felt that it was due to indigestion or dehydration and stated that her symptoms improved when she was given IV fluids. She has no acute EKG changes or elevation in troponin, but certainly does have risk factors including diabetes mellitus present for 20 years and essential hypertension. I therefore agree with further testing, which will include a pharmacologic myocardial perfusion study. She did have an echocardiogram within the last year that showed normal left ventricular function. This will not be repeated unless her stress test shows left ventricular dysfunction. Further recommendations depend upon the results of her pharmacologic stress test. I thank the hospitalist physicians for asking our advice regarding her care. BONNIE ALBRECHT MD CM:CONSTR:REPORT OF CONSULTATION 1430 08/02/18 0906 interface
--- NOTE | ~2018-08-01 | EKG ---
[place], [place] ELECTROCARDIOGRAM REPORT NAME: LAKISHA ERICKSON UNIT #: [id number] ROOM: 528 DOCTOR: MARIANAANY DRAFT REPORT BIRTHDATE: [birth year] [facility] Test Date: 2018-08-01 Test Time: 08:51:41 Pat Name: LAKISHA ERICKSON Department: Room: 528 Gender: F Surgical Endoscopist: Marixa Meyer : 1930 Requested By: MEAGAN KATE Order Number: [id number] Reading MD: Primo Wilson MD Measurements Intervals [place] Rate: 73 P: [place]: QRS: -3 QRSD: 94 T: -41 QT: 408 QTc: 450 Interpretive Statements Afib/flut and V-paced complexes No further rhythm analysis attempted due to paced rhythm Nonspecific T abnormalities, lateral leads Compared to ECG 06/13/2018 00:34:44 No significant changes Electronically Signed On 08-03-2018 8:11:47 PST by Primo Wilson MD CM:EKGRPT:ELECTROCARDIOGRAM REPORT [id number] 0 MEAGAN KATE MD EPIPHANY DRAFT REPORT MEAGAN KATE MD
--- NOTE | ~2018-08-01 | EKG ---
[place], [place] ELECTROCARDIOGRAM REPORT NAME: LAKISHA ERICKSON UNIT #: [id number] ROOM: 528 DOCTOR: EPIPHANY DRAFT REPORT BIRTHDATE: [birth year] [facility] Test Date: 2018-08-01 Test Time: 03:18:38 Pat Name: LAKISHA ERICKSON Department: Room: 528 Gender: F Butcher Meat: Randall Preciado : 1930 Requested By: MEAGAN KATE Order Number: [id number] Reading MD: Primo Wilson MD Measurements Intervals [place] Rate: 71 P: [place]: QRS: -17 QRSD: 123 T: -48 QT: 417 QTc: 454 Interpretive Statements Atrial fibrillation Probable left ventricular hypertrophy Anterior Q waves, possibly due to LVH Borderline T abnormalities, inferior leads Compared to ECG 06/13/2018 00:34:44 Left ventricular hypertrophy now present Q waves now present Ventricular-paced complex(es) or rhythm no longer present T-wave abnormality still present Electronically Signed On 08-03-2018 8:10:55 PST by Primo Wilson MD CM:EKGRPT:ELECTROCARDIOGRAM REPORT [id number] MEAGAN KATE MD EPIPHANY DRAFT REPORT MEAGAN KATE MD
--- NOTE | ~2018-08-01 | PR ---
[place], [place] PROGRESS NOTE NAME: LAKISHA ERICKSON UNIT #: [id number] ROOM: 528 DOCTOR: BONNIE ALBRECHT MD BIRTHDATE: [birth year] DOS: 08/03/2018 CARDIOLOGY PROGRESS NOTE SUBJECTIVE: The patient was seen in the Cardiology Department today 08/03/2018 prior to her stress test. She has not had any further chest discomfort since admission and is now convinced that it was indigestion. She is breathing easily and denies any palpitations. PHYSICAL EXAMINATION: VITAL SIGNS: Her pulse is 72 and irregularly irregular. Blood pressure is 116/44. She is afebrile. She weighs 79.1 kg and has a body mass index of 30.9. NECK: Supple. She has no jugular distention. Carotids are full. LUNGS: Respirations are unlabored. Chest is clear to auscultation and percussion. She has no presacral edema or chest wall tenderness. HEART: Has an irregularly irregular rhythm without murmurs or gallops. ABDOMEN: Benign. EXTREMITIES: Showed trace edema at the ankles bilaterally. LABORATORY DATA: Hemoglobin is 13.9, white count 4500, platelet count 145,000. Sodium is 142, potassium 4.2, BUN 22, creatinine 1.23. IMPRESSION: 1. Transient precordial chest pain. No evidence for acute myocardial infarction. 2. Type 2 diabetes mellitus of over 20 years' duration. 3. Essential hypertension. PLAN: We will proceed with a pharmacologic stress test today. Further recommendations depend upon the results of the stress test. I thank the hospitalist physicians for asking our advice regarding her care. BONNIE ALBRECHT MD CM:PNTRANS [id number] BONNIE ALBRECHT MD 08/03/18 1158 interface
[~2018-08-01 02:25] MED LIST changes: +ASPIR LOW81 MG PO; +CARTIA XT180 MG PO; +D3-20002000 UNIT PO; +FOLGARD TABLET1 EACH PO; +KLOR-CON M1010 ME1 PO; +LEVOTHYROXINE50 MCG PO; +LOPRESSOR100 M1 PO; +MULTIVITAMINS1 EAC5 PO; +VITAMIN D-32000 UNIT PO
[2018-08-01 02:29] VITALS: BP 148/65
[2018-08-01 02:56] LABS: BILIRUBIN NEGATIVE (NEGATIVE); BLOOD TRACE-INTACT (NEGATIVE); CLARITY SL CLOUDY (CLEAR); COLOR YELLOW (YELLOW); GLUCOSE NEGATIVE (NEGATIVE); KETONE NEGATIVE (NEGATIVE); LEUKO ESTERASE 2+ (NEGATIVE); NITRITE NEGATIVE (NEGATIVE); PH 6.5 (5.0-9.0); UROBILINOGEN 0.2 E.U./dl (0.2-1.0)
[2018-08-01 02:57] LABS: BASO % 0.3 % (0.0-1.0); EOS # 0.2 10*3/uL (0.0-0.4); HEMATOCRIT 43.1 % (37.0-47.0); HEMOGLOBIN 14.4 g/dl (12.0-16.0); LYMPH # 1.2 10*3/uL (1.3-4.4); LYMPH % 18.6 % (27.0-41.0); MEAN CELL VOLUME 93.3 fl (81.0-99.0); MEAN CORPUSCULAR HGB 31.2 pg (27.0-31.0); MEAN CORPUSCULAR HGB CONC 33.4 g/dl (33.0-37.0); MEAN PLATELET VOLUME 10.5 fl (9.6-12.3); MONO # 0.6 10*3/uL (0.1-1.0); MONO % 9.1 % (3.0-9.0); NEUT # 4.4 10*3/uL (2.3-7.9); NEUT % 68.8 % (47.0-73.0); PLATELET COUNT AUTOMATED 155 10*3/uL (130-400); RED BLOOD COUNT 4.62 10*6/uL (4.10-5.10); RED CELL DISTRI WIDTH 13.2 % (0-14.5); WHITE BLOOD COUNT 6.4 10*3/uL (4.8-10.8)
[2018-08-01 03:02] LABS: BACTERIA 1+; WBC 41-50 wbc/hpf (0-5)
[2018-08-01 03:08] LABS: ACT PARTIAL THROMBO TIME 32.8 SECONDS (20.8-31.5); INTERNATIONAL NORM RATIO 1.9 (2.0-3.5)
[2018-08-01 03:15] LABS: ALBUMIN 3.6 gm/dl (3.1-4.5); ALKALINE PHOSPHATASE 96 U/L (45-117); BUN 25 mg/dl (7-24); CHLORIDE 104 mmol/L (98-107); CREATININE 1.58 mg/dL (0.55-1.02); POTASSIUM 3.7 mmol/L (3.5-5.1); SGOT/AST 14 IU/L (3-35); SGPT/ALT 23 U/L (12-78); SODIUM 139 mmol/L (136-145); TOTAL PROTEIN 7.3 gm/dL (6.4-8.2)
[2018-08-01 03:18] LABS: TROPONIN I < 0.015 ng/ml (<0.045)
[2018-08-01 04:00] VITALS: BP 144/79
--- NOTE | 2018-08-01 04:00 | NUR ---
A 87, admitted to , under the services of CRISTINA Chin DO with a diagnosis of AFIB W/CONTROLLED VENTRICULAR RATE, CHEST PAIN. Chief complaint is DEHYDRATION. Patient arrived via ambulance from ER. Monitor applied. Initial assessment completed. Vital signs taken and recorded. CRISTINA CHIN DO notified of admission to the unit. Orders received. See assessment for past medical history, medications and allergies. Patient and/or family oriented to unit. [facility] visitation policy reviewed. Clothing/patient valuable form completed. ASHTYN CONDE
--- NOTE | 2018-08-01 05:18 | NUR ---
WILL PASS ON TO DAYLIGHT NURSE THAT MED REC NEEDS COMPLETED AT THIS TIME.
[2018-08-01 12:00] VITALS: BP 143/70
[2018-08-01 16:00] VITALS: BP 126/60
[2018-08-01 20:00] VITALS: BP 105/56
--- NOTE | 2018-08-01 20:05 | NUR ---
ASSESSMENT COMPLETE AT THIS TIME. PT ALERT ORIENTED AND PLEASANT, WITH NO COMPLAINTS. NO NEW ABNORMALITIES NOTED. RESPIRATIONS EASY AND UNLABORED ON ROOM AIR. ALL NEEDS MET. ALL SAFETY MEASURES IN PLACE. CALL LIGHT IN REACH.
--- NOTE | 2018-08-01 22:00 | NUR ---
PT DENIES WANTING SLIDING SCALE COVERAGE FOR 263 BLOOD SUGAR. PT STATES THAT SHE DROPS EASILY AND ONLY WANTS TO TAKE HER LANTUS. ALL OTHER MEDICATION GIVEN AT THIS TIME. WILL CONTINUE TO MONITOR. CALL LIGHT IN REACH.
[2018-08-02] VITALS: BP 136/76
--- NOTE | 2018-08-02 05:10 | NUR ---
PT BLOOD SUGAR OBTAINED, 63. PT ALERT ORIENTED AND PLEASANT AND DENIES SYMPTOMS OF HYPOGLYCEMIA. PT GIVEN MILK, ORANGE JUICE, AND CRACKERS. WILL RECHECK BLOOD SUGAR IN 30 MINUTES. PT SITTING IN BED, ALL SAFETY MEASURES IN PLACE. CALL LIGHT IN REACH.
--- NOTE | 2018-08-02 06:00 | NUR ---
PT BLOOD SUGAR RECHECKED, 115 AT THIS TIME. NO COMPLAINTS VOICED BY PT.
[2018-08-02 06:35] LABS: BASO % 0.6 % (0.0-1.0); EOS # 0.2 10*3/uL (0.0-0.4); EOS % 3.9 % (1.0-4.0); HEMATOCRIT 46.5 % (37.0-47.0); HEMOGLOBIN 14.9 g/dl (12.0-16.0); LYMPH # 1.4 10*3/uL (1.3-4.4); LYMPH % 25.2 % (27.0-41.0); MEAN CELL VOLUME 94.3 fl (81.0-99.0); MEAN CORPUSCULAR HGB 30.2 pg (27.0-31.0); MEAN PLATELET VOLUME 10.3 fl (9.6-12.3); MONO # 0.5 10*3/uL (0.1-1.0); MONO % 9.5 % (3.0-9.0); NEUT # 3.3 10*3/uL (2.3-7.9); NEUT % 60.6 % (47.0-73.0); PLATELET COUNT AUTOMATED 166 10*3/uL (130-400); RED BLOOD COUNT 4.93 10*6/uL (4.10-5.10); RED CELL DISTRI WIDTH 13.4 % (0-14.5); WHITE BLOOD COUNT 5.4 10*3/uL (4.8-10.8)
[2018-08-02 07:12] LABS: CREATININE 1.29 mg/dL (0.55-1.02); PHOSPHOROUS 3.4 mg/dL (2.5-4.9); POTASSIUM 3.8 mmol/L (3.5-5.1)
[2018-08-02 07:21] LABS: FREE T4 1.03 ng/dl (0.76-1.46); THYROID STIM HORMONE (HS) 1.86 uIU/ml (0.358-4.75)
[2018-08-02 08:00] VITALS: BP 132/70
--- NOTE | 2018-08-02 11:03 | NUR ---
Patient resting quietly with no c/o discomfort. Respirations easy and regular. Vital signs stable. No overt distress. DANNI RIVERO
[2018-08-02 12:00] VITALS: BP 152/68
[2018-08-02 16:00] VITALS: BP 138/77
[2018-08-02 20:00] VITALS: BP 150/67
--- NOTE | 2018-08-02 22:00 | NUR ---
PATIENT REFUSED ALL INSULIN DUE TO BEING NPO FOR STRESS TEST IN THE AM.
[2018-08-03] VITALS: BP 116/44
[2018-08-03 06:58] LABS: BASO % 0.7 % (0.0-1.0); EOS # 0.2 10*3/uL (0.0-0.4); EOS % 3.8 % (1.0-4.0); HEMATOCRIT 41.1 % (37.0-47.0); HEMOGLOBIN 13.9 g/dl (12.0-16.0); LYMPH # 1.2 10*3/uL (1.3-4.4); LYMPH % 26.5 % (27.0-41.0); MEAN CELL VOLUME 92.8 fl (81.0-99.0); MEAN CORPUSCULAR HGB 31.4 pg (27.0-31.0); MEAN CORPUSCULAR HGB CONC 33.8 g/dl (33.0-37.0); MEAN PLATELET VOLUME 10.4 fl (9.6-12.3); MONO # 0.5 10*3/uL (0.1-1.0); MONO % 10.2 % (3.0-9.0); NEUT # 2.7 10*3/uL (2.3-7.9); NEUT % 58.6 % (47.0-73.0); PLATELET COUNT AUTOMATED 148 10*3/uL (130-400); RED BLOOD COUNT 4.43 10*6/uL (4.10-5.10); RED CELL DISTRI WIDTH 13.4 % (0-14.5); WHITE BLOOD COUNT 4.5 10*3/uL (4.8-10.8)
[2018-08-03 07:08] LABS: INTERNATIONAL NORM RATIO 1.7 (2.0-3.5)
[2018-08-03 07:10] LABS: CREATININE 1.23 mg/dL (0.55-1.02); POTASSIUM 4.2 mmol/L (3.5-5.1)
--- NOTE | 2018-08-03 11:07 | NUR ---
INFORMED CONSENT SIGNED FOR LEXISCAN STRESS TEST WITH DR. ALBRECHT. RESTING EKG A-FIB WITH FREQUENT PVC'S, COUPLETS AND SINGLES. HR 87, BP 118/62. PULSE OX 98% AND LUNGS CLEAR. COMPLETED ONE MINUTE OF LEXISCAN PROTOCOL RECEIVING LEXISCAN 0.4MG OVER 10 SECONDS. PVC'S REMAINED IN SINGLES AND COUPLETS WITH NONDIAGNOSTIC ST CHANGES. PT HAD NO SYMPTOMS. LAST RECOVERY HR 014, BP 124/60. WAITNG NUCLEAR SCANNING IN STABLE CONDITION.
[2018-08-03 12:00] VITALS: BP 148/95
--- NOTE | 2018-08-03 13:45 | NUR ---
Payroll Technician in to talk to patient. Patient states lives at HOME with SON. There are NO steps in the home. Physician: MARYLOU DAVIS [facility]acy[facility] Home health services: HAS HAD [facility] BUT NOT NOW Patient's level of ADLs: INDEPENDENT Patient has working utilities: YES DME: NONE Follow-up physician's appointment after d/c: WILL BE MADE BY HOSPITALIST NURSE DIRECTOR ON DISCHARGE Does patient want to access PORTAL?: NO Discharge plan PT STATES SHE LIVES AT HOME WITH HER SON. SHE STATES SHE COOKS AND CLEANS HERSELF AND IS INDEPENDENT IN CARE. STATES NO NEEDS AT HOME AFTER DISCHARGE. WILL CONTINUE TO FOLLOW.. BINTA MCKENNA
[2018-08-03 16:00] VITALS: BP 110/50
--- NOTE | 2018-08-03 18:01 | NUR ---
Discharge instructions reviewed with patient/family. Patient receptive and verbalizes understanding. Follow-up care arranged. Written instructions given to patient/family. YING MANRIQUEZ
== END 2018-08-03 18:01 | disposition home or self-care (01) | DRG 392 ==
LOC: ED 02:25 → 5E 03:55 → EDHOLD 03:55 → 5E 03:56
PROVIDERS: Emergency Medicine Emergency Medical Services; Internal Medicine; ADMIT Emergency Medicine
DX: K21.9 Gastro-esophageal reflux disease without esophagitis (principal); I50.32 Chronic diastolic (congestive) heart failure; N30.01 Acute cystitis with hematuria; I13.0 Hypertensive heart and chronic kidney disease with heart failure and stage 1 through stage 4 chronic kidney disease, or unspecified chronic kidney disease; N18.3 Chronic kidney disease, stage 3 (moderate); E10.65 Type 1 diabetes mellitus with hyperglycemia; Z79.4 Long term (current) use of insulin; E78.5 Hyperlipidemia, unspecified; E55.9 Vitamin D deficiency, unspecified; E03.9 Hypothyroidism, unspecified; F41.9 Anxiety disorder, unspecified; E66.9 Obesity, unspecified; E86.0 Dehydration; I48.91 Unspecified atrial fibrillation; Z88.2 Allergy status to sulfonamides; Z88.1 Allergy status to other antibiotic agents; Z79.82 Long term (current) use of aspirin; Z79.891 Long term (current) use of opiate analgesic; Z90.710 Acquired absence of both cervix and uterus; Z90.49 Acquired absence of other specified parts of digestive tract; Z95.0 Presence of cardiac pacemaker; Z98.42 Cataract extraction status, left eye; Z98.41 Cataract extraction status, right eye; Z82.49 Family history of ischemic heart disease and other diseases of the circulatory system; Z83.3 Family history of diabetes mellitus; R79.1 Abnormal coagulation profile; Z68.30 Body mass index [BMI] 30.0-30.9, adult

== ENCOUNTER → 2018-09-10 | Outpatient (CLI) | payer MEDICARE ==
[2018-09-10 12:54] LABS: INTERNATIONAL NORM RATIO 2.5 (2.0-3.5)
== END | disposition home or self-care (01) ==
LOC: LAB 12:06
PROVIDERS: Nurse Practitioner Family
DX: I48.1 Persistent atrial fibrillation (principal)

== ENCOUNTER → 2018-12-05 | Outpatient (CLI) | payer MEDICARE ==
[2018-12-05 10:46] LABS: INTERNATIONAL NORM RATIO 2.6 (2.0-3.5)
== END | disposition home or self-care (01) ==
LOC: LAB 09:35
PROVIDERS: Nurse Practitioner Family
DX: I48.91 Unspecified atrial fibrillation (principal)

== ENCOUNTER → 2018-12-18 | Outpatient (CLI) | payer MEDICARE ==
[2018-12-18 12:06] LABS: INTERNATIONAL NORM RATIO 2.8 (2.0-3.5)
== END | disposition home or self-care (01) ==
LOC: LAB 11:08
PROVIDERS: Nurse Practitioner Family
DX: I48.1 Persistent atrial fibrillation (principal)

== ENCOUNTER → 2019-01-06 | Outpatient (CLI) | payer MEDICARE | END | disposition home or self-care (01) | LOC: LAB 16:10 | PROVIDERS: Nurse Practitioner Family | DX: I48.91 Unspecified atrial fibrillation (principal) ==

== ENCOUNTER → 2019-01-08 | Outpatient (CLI) | payer MEDICARE ==
[2019-01-08 07:45] LABS: BASO % 0.7 % (0.0-1.0); EOS # 0.3 10*3/uL (0.0-0.4); EOS % 4.4 % (1.0-4.0); HEMATOCRIT 42.7 % (37.0-47.0); LYMPH % 16.7 % (27.0-41.0); MEAN CELL VOLUME 92.2 fl (81.0-99.0); MEAN CORPUSCULAR HGB 30.2 pg (27.0-31.0); MEAN CORPUSCULAR HGB CONC 32.8 g/dl (33.0-37.0); MEAN PLATELET VOLUME 10.3 fl (9.6-12.3); MONO # 0.6 10*3/uL (0.1-1.0); MONO % 10.2 % (3.0-9.0); NEUT # 4.1 10*3/uL (2.3-7.9); NEUT % 67.5 % (47.0-73.0); PLATELET COUNT AUTOMATED 179 10*3/uL (130-400); RED BLOOD COUNT 4.63 10*6/uL (4.10-5.10); RED CELL DISTRI WIDTH 13.9 % (0-14.5); WHITE BLOOD COUNT 6.1 10*3/uL (4.8-10.8)
[2019-01-08 08:07] LABS: ALBUMIN 3.5 gm/dl (3.1-4.5); CREATININE 1.41 mg/dL (0.55-1.02); POTASSIUM 4.1 mmol/L (3.5-5.1); TOTAL PROTEIN 7.9 gm/dL (6.4-8.2)
[2019-01-08 08:13] LABS: INTERNATIONAL NORM RATIO 3.5 (2.0-3.5)
== END | disposition home or self-care (01) ==
LOC: LAB 06:48
PROVIDERS: Nurse Practitioner Family
DX: I48.91 Unspecified atrial fibrillation (principal); E11.9 Type 2 diabetes mellitus without complications; E55.9 Vitamin D deficiency, unspecified; E78.2 Mixed hyperlipidemia

== ENCOUNTER → 2019-01-12 | Outpatient (CLI) | payer MEDICARE ==
[2019-01-12 12:32] LABS: INTERNATIONAL NORM RATIO 1.7 (2.0-3.5)
== END | disposition home or self-care (01) ==
LOC: LAB 11:10
PROVIDERS: Internal Medicine Cardiovascular Disease
DX: I48.0 Paroxysmal atrial fibrillation (principal)

== ENCOUNTER → 2019-01-18 | Outpatient (CLI) | payer MEDICARE | END | disposition home or self-care (01) | LOC: RAD 10:50 → LAB 10:50 | DX: E11.9 Type 2 diabetes mellitus without complications (principal); I48.1 Persistent atrial fibrillation; R19.7 Diarrhea, unspecified; Z90.710 Acquired absence of both cervix and uterus ==

== ENCOUNTER → 2019-05-07 | Outpatient (CLI) | payer MEDICARE ==
[2019-05-07 08:37] LABS: BASO % 0.5 % (0.0-1.0); EOS # 0.1 10*3/uL (0.0-0.4); EOS % 2.5 % (1.0-4.0); HEMATOCRIT 42.1 % (37.0-47.0); HEMOGLOBIN 13.9 g/dl (12.0-16.0); LYMPH # 1.1 10*3/uL (1.3-4.4); LYMPH % 19.9 % (27.0-41.0); MEAN CELL VOLUME 92.5 fl (81.0-99.0); MEAN CORPUSCULAR HGB 30.5 pg (27.0-31.0); MEAN PLATELET VOLUME 10.7 fl (9.6-12.3); MONO # 0.5 10*3/uL (0.1-1.0); MONO % 9.3 % (3.0-9.0); NEUT # 3.8 10*3/uL (2.3-7.9); NEUT % 67.6 % (47.0-73.0); PLATELET COUNT AUTOMATED 155 10*3/uL (130-400); RED BLOOD COUNT 4.55 10*6/uL (4.10-5.10); WHITE BLOOD COUNT 5.7 10*3/uL (4.8-10.8)
[2019-05-07 09:04] LABS: ALBUMIN 3.5 gm/dl (3.1-4.5); CREATININE 1.24 mg/dL (0.55-1.02); POTASSIUM 3.9 mmol/L (3.5-5.1); TOTAL PROTEIN 7.3 gm/dL (6.4-8.2)
== END | disposition home or self-care (01) ==
LOC: LAB 07:43
PROVIDERS: Nurse Practitioner Family
DX: E11.22 Type 2 diabetes mellitus with diabetic chronic kidney disease (principal); I12.9 Hypertensive chronic kidney disease with stage 1 through stage 4 chronic kidney disease, or unspecified chronic kidney disease; N18.3 Chronic kidney disease, stage 3 (moderate); E83.41 Hypermagnesemia

== ENCOUNTER → 2019-05-12 | Outpatient (CLI) | payer MEDICARE | END | disposition home or self-care (01) | LOC: US 13:16 | DX: E11.9 Type 2 diabetes mellitus without complications (principal); I48.11 Longstanding persistent atrial fibrillation; R19.7 Diarrhea, unspecified ==

== ENCOUNTER 2020-01-02 07:01 | Inpatient (IN) | payer MEDICARE ==
[~2020-01-02] VITALS: Ht 157.5 cm; Wt 74.9 kg
[2020-01-02 07:20] VITALS: BP 175/88
[2020-01-02 07:27] LABS: BASO % 0.6 % (0.0-1.0); EOS # 0.2 10*3/uL (0.0-0.4); EOS % 2.1 % (1.0-4.0); HEMATOCRIT 43.2 % (37.0-47.0); LYMPH # 0.9 10*3/uL (1.3-4.4); LYMPH % 12.8 % (27.0-41.0); MEAN CELL VOLUME 93.7 fl (81.0-99.0); MEAN CORPUSCULAR HGB 30.2 pg (27.0-31.0); MEAN CORPUSCULAR HGB CONC 32.2 g/dl (33.0-37.0); MEAN PLATELET VOLUME 9.9 fl (9.6-12.3); MONO # 0.7 10*3/uL (0.1-1.0); MONO % 9.3 % (3.0-9.0); NEUT # 5.4 10*3/uL (2.3-7.9); NEUT % 74.9 % (47.0-73.0); PLATELET COUNT AUTOMATED 168 10*3/uL (130-400); RED BLOOD COUNT 4.61 10*6/uL (4.10-5.10); RED CELL DISTRI WIDTH 14.3 % (0-14.5); WHITE BLOOD COUNT 7.1 10*3/uL (4.8-10.8)
[2020-01-02 07:38] LABS: ACT PARTIAL THROMBO TIME 36.6 SECONDS (20.0-32.1); INTERNATIONAL NORM RATIO 2.3 (2.0-3.5)
[2020-01-02 07:43] LABS: ALBUMIN 3.9 gm/dl (3.1-4.5); ALKALINE PHOSPHATASE 117 U/L (45-117); BUN 14 mg/dl (7-24); CHLORIDE 107 mmol/L (98-107); CREATININE 1.21 mg/dL (0.55-1.02); POTASSIUM 3.7 mmol/L (3.5-5.1); SGOT/AST 20 IU/L (3-35); SGPT/ALT 27 U/L (12-78); SODIUM 138 mmol/L (136-145); TOTAL PROTEIN 8.2 gm/dL (6.4-8.2)
[2020-01-02 07:52] LABS: TROPONIN I < 0.015 ng/ml (<0.045)
[2020-01-02 08:00] VITALS: BP 165/88
[2020-01-02 08:50] VITALS: BP 174/86
--- NOTE | 2020-01-02 09:15 | NUR ---
A 89YO FEMALE, admitted to , under the services of RADHA Harris DO with a diagnosis of CHF W/NYH3, INDIGESTION. Chief complaint is SHORT OF BREATH THROUGHOUT LAST NIGHT, URINARY FREQUENCY, FEET SWELLING AND INDIGESTION. Patient arrived via stretcher from ER. Monitor applied. Initial assessment completed. Vital signs taken and recorded. RADHA HARRIS DO notified of admission to the unit. Orders received. See assessment for past medical history, medications and allergies. Patient and/or family oriented to unit. [facility] visitation policy reviewed. Clothing/patient valuable form completed. GONSALO HENDERSON
[2020-01-02 09:33] LABS: BACTERIA 2+; BILIRUBIN NEGATIVE (NEGATIVE); BLOOD NEGATIVE (NEGATIVE); CLARITY CLEAR (CLEAR); COLOR YELLOW (YELLOW); GLUCOSE NEGATIVE (NEGATIVE); KETONE NEGATIVE (NEGATIVE); LEUKO ESTERASE NEGATIVE (NEGATIVE); NITRITE NEGATIVE (NEGATIVE); RBC 0-2 rbc/hpf (0-2); SPECIFIC GRAVITY 1.005 (1.005-1.030); UROBILINOGEN 0.2 E.U./dl (0.2-1.0)
[2020-01-02] MEDS ORDERED: COUMADIN5 M2 PO (10:21)
[2020-01-02] MEDS ORDERED: COUMADIN1 M1 PO (10:21)
[2020-01-02] MEDS ORDERED: OMEPRAZOLE20 M2 PO (10:22)
[2020-01-02] MEDS ORDERED: CENTRUM SILVER1 EACH PO (10:22)
[2020-01-02] MEDS ORDERED: JANUVIA25 MG PO (10:23)
--- NOTE | 2020-01-02 11:57 | NUR ---
AWAITING AN ANSWER FROM [facility] RE: INQUIRY ABOUT THE 2013 PLACEMENT OF A PACEM[address] BY [address]. HARRELL' ASSOCIATE. PATIENT CANNOT RECALL WHAT TYPE OF PACEMAKER SHE HAS, ALSO CANNOT RECALL WHERE SHE PUT THE CARD WITH INFORMATION ON IT AT HOME.
[2020-01-02 12:00] VITALS: BP 154/74
--- NOTE | 2020-01-02 13:12 | NUR ---
PER [facility], PATIENT HAS [facility] PACEMAKER. [facility] DEVICE USED TO READ AND TRANSMIT THE DATA, AWAITING FAXED RESULTS.
--- NOTE | 2020-01-02 13:17 | NUR ---
PACEMAKER INTERROGATION RESULTS ON CHART.
[2020-01-02 16:00] VITALS: BP 130/75
[2020-01-02 20:00] VITALS: BP 126/69
--- NOTE | 2020-01-02 20:41 | NUR ---
PATIENT RESTING IN BED. SHE STATED SHE HAS BEEN GETTING UP TO USE THE BATHROOM A LOT DUE TO THE LASIX SHE RECIEVED. SHE STATED SHE WAS GETTING TIRED OF GETTING UP SO MUCH AND HAVING TO WALK ACROSS THE ROOM BACK AND FORTH. I MENTIONED TO HER THAT I COULD GET HER A BEDSIDE COMMODE FOR NOW SINCE SHE IS HAVING FREQUENCY AND PATIENT AGREED THAT THIS IS WHAT SHE WANTED. PATIENT STATED ONCE SHE STOPPED URINATING FREQUENTLY SHE WOULD RESUME USING THE BATHROOM TOILET. BEDSIDE COMMODE PLACED IN PATIENT'S ROOM. CALL LIGHT WITHIN REACH. WILL MONITOR.
[2020-01-03] VITALS: BP 121/48
[2020-01-03 03:07] VITALS: BP 104/47
--- NOTE | 2020-01-03 05:50 | NUR ---
PATIENT REQUESTED I TAKE HER BLOOD SUGAR. BLOOD SUGAR 69. I GAVE THE PATIENT ORANGE JUICE AND NICKI CRACKERS PER REQUEST.
[2020-01-03 06:32] LABS: BASO % 0.4 % (0.0-1.0); EOS # 0.2 10*3/uL (0.0-0.4); HEMATOCRIT 41.7 % (37.0-47.0); LYMPH % 15.4 % (27.0-41.0); MEAN CELL VOLUME 92.1 fl (81.0-99.0); MEAN CORPUSCULAR HGB CONC 32.6 g/dl (33.0-37.0); MEAN PLATELET VOLUME 10.8 fl (9.6-12.3); MONO # 0.6 10*3/uL (0.1-1.0); MONO % 9.5 % (3.0-9.0); NEUT # 4.8 10*3/uL (2.3-7.9); NEUT % 71.3 % (47.0-73.0); PLATELET COUNT AUTOMATED 178 10*3/uL (130-400); RED BLOOD COUNT 4.53 10*6/uL (4.10-5.10); RED CELL DISTRI WIDTH 14.1 % (0-14.5); WHITE BLOOD COUNT 6.7 10*3/uL (4.8-10.8)
[2020-01-03 06:40] LABS: ACT PARTIAL THROMBO TIME 38.2 SECONDS (20.0-32.1); INTERNATIONAL NORM RATIO 2.5 (2.0-3.5)
[2020-01-03 07:03] LABS: CREATININE 1.27 mg/dL (0.55-1.02); POTASSIUM 3.6 mmol/L (3.5-5.1)
[2020-01-03 07:11] LABS: THYROID STIM HORMONE (HS) 2.19 uIU/ml (0.358-4.75)
[2020-01-03 07:37] LABS: VITAMIN D, 25-HYDROXY 54.9 ng/mL (30-100)
[2020-01-03 08:00] VITALS: BP 126/58
--- NOTE | 2020-01-03 09:00 | NUR ---
Hospital Educator in to talk to patient. Patient states lives at home with alone. There are no steps in the home. Physician: monica murphy [facility] Home health services: none Patient's level of ADLs: INDEPENDENT Patient has working utilities: all working DME: none Follow-up physician's appointment after d/c: will be made by hospitalist nurse director upon discharge Does patient want to access PORTAL?: no Discharge plan discussed with patient, she states she lives at home alone, she is independent in adls and ambulation, she states he doesn't drive but has family that takes her anywhere she needs to go . she stated she would return home when medically stable, discussed with her and educated her on VNA and the services they provide, she declined any home needs at this time, case management will follow. SOHAM ALMARAZ
--- NOTE | 2020-01-03 09:50 | NUR ---
PHYSICAL THERAPY Physical therapy evaluation attempted, screen complete. Patient independent in room with transfers and gait, no AD. No PT needs indicated at this time. Thank you for this referral. Rosalinda Sargent,PT,DPT
--- NOTE | 2020-01-03 10:18 | NUR ---
OT evaluation was received and chart was reviewed. Occupational therapy screen was completed this date. Pt was (I) with functional moblity with no assistive device, demonstrated (I) with ADLS, bed mobility, completed toilet transfer (I) and demonstrated good activity tolerance. Pt is evaluation only. Pt made aware of d/c for OT services and was agreeable with no further questions. No further OT indicated. Thank you for the referral. Noris Hairston OTR/Shira
[2020-01-03 12:00] VITALS: BP 116/68
[2020-01-03 16:00] VITALS: BP 125/72
[2020-01-03 20:00] VITALS: BP 148/96
--- NOTE | 2020-01-03 23:35 | NUR ---
PATIENT REQUESTED I TAKE HER BLOOD SUGAR. RESULT WAS 178. PATIENT SEEMED ANXIOUS ABOUT IT AND REQUESTED SOME CRACKERS. CRACKERS GIVEN PER PATIENT REQUEST.
[2020-01-04] VITALS: BP 148/58
--- NOTE | 2020-01-04 01:51 | NUR ---
Patient resting quietly with no c/o discomfort. Respirations easy and regular. Vital signs stable. No overt distress. CLARENCE SHEN
[2020-01-04 06:45] LABS: BASO % 0.5 % (0.0-1.0); EOS # 0.2 10*3/uL (0.0-0.4); EOS % 3.1 % (1.0-4.0); LYMPH # 1.1 10*3/uL (1.3-4.4); LYMPH % 18.9 % (27.0-41.0); MEAN CELL VOLUME 92.1 fl (81.0-99.0); MEAN CORPUSCULAR HGB 30.6 pg (27.0-31.0); MEAN CORPUSCULAR HGB CONC 33.3 g/dl (33.0-37.0); MEAN PLATELET VOLUME 10.6 fl (9.6-12.3); MONO # 0.8 10*3/uL (0.1-1.0); MONO % 13.2 % (3.0-9.0); NEUT # 3.7 10*3/uL (2.3-7.9); PLATELET COUNT AUTOMATED 161 10*3/uL (130-400); RED BLOOD COUNT 4.67 10*6/uL (4.10-5.10); RED CELL DISTRI WIDTH 14.1 % (0-14.5); WHITE BLOOD COUNT 5.8 10*3/uL (4.8-10.8)
[2020-01-04 07:07] LABS: CREATININE 1.34 mg/dL (0.55-1.02); POTASSIUM 3.5 mmol/L (3.5-5.1)
[2020-01-04 08:00] VITALS: BP 138/70
--- NOTE | 2020-01-04 09:00 | NUR ---
case management visits with patient, she states she will be returning home when discharged, possibly discharge today. again discussed with her VNA and she declined any home services
[2020-01-04] MEDS ORDERED: LASIX20 MG PO (10:36)
--- NOTE | 2020-01-04 10:56 | NUR ---
PT WAITING FOR RETURN CALL REGARDING DISCHARGE TRANSPORTATION
--- NOTE | 2020-01-04 11:00 | NUR ---
Discharge instructions reviewed with patient/family. Patient receptive and verbalizes understanding. Follow-up care arranged. Written instructions given to patient/family. SORIN LOZANO The Discharge Plan/Instructions have been completed. Hep Lock discontinued. Site asymptomatic. Pressure applied. Sterile dressing applied. SORIN LOZANO
== END 2020-01-04 11:00 | disposition home or self-care (01) | DRG 291 ==
LOC: ED 07:01 → 4E 08:55
PROVIDERS: Emergency Medicine; Internal Medicine; ADMIT Internal Medicine
PROC: 4B02XSZ Measurement of Cardiac Pacemaker, External Approach (ICD-10-PCS; principal; 2020-01-02)
DX: I13.0 Hypertensive heart and chronic kidney disease with heart failure and stage 1 through stage 4 chronic kidney disease, or unspecified chronic kidney disease (principal); I50.33 Acute on chronic diastolic (congestive) heart failure; D68.59 Other primary thrombophilia; I48.91 Unspecified atrial fibrillation; N18.3 Chronic kidney disease, stage 3 (moderate); E78.5 Hyperlipidemia, unspecified; E10.69 Type 1 diabetes mellitus with other specified complication; E10.65 Type 1 diabetes mellitus with hyperglycemia; E10.22 Type 1 diabetes mellitus with diabetic chronic kidney disease; E03.9 Hypothyroidism, unspecified; E83.41 Hypermagnesemia; K21.9 Gastro-esophageal reflux disease without esophagitis; I27.20 Pulmonary hypertension, unspecified; I35.0 Nonrheumatic aortic (valve) stenosis; F41.9 Anxiety disorder, unspecified; K30 Functional dyspepsia; Z90.49 Acquired absence of other specified parts of digestive tract; Z95.0 Presence of cardiac pacemaker; Z90.710 Acquired absence of both cervix and uterus; Z98.42 Cataract extraction status, left eye; Z98.41 Cataract extraction status, right eye; Z82.49 Family history of ischemic heart disease and other diseases of the circulatory system; Z79.01 Long term (current) use of anticoagulants; Z79.899 Other long term (current) drug therapy; Z79.4 Long term (current) use of insulin; Z88.2 Allergy status to sulfonamides; Z88.1 Allergy status to other antibiotic agents

== ENCOUNTER 2020-02-09 07:44 | Emergency (ER) | payer MEDICARE ==
[~2020-02-09] VITALS: Ht 157.4 cm; Wt 73.5 kg
[~2020-02-09 07:44] MED LIST changes: +CENTRUM SILVER1 EACH PO; +COUMADIN1 M1 PO; +JANUVIA25 MG PO; +LASIX20 MG PO; +OMEPRAZOLE20 M2 PO
[2020-02-09 07:53] VITALS: BP 154/81
[2020-02-09 08:19] LABS: BASO % 0.3 % (0.0-1.0); EOS # 0.1 10*3/uL (0.0-0.4); EOS % 2.1 % (1.0-4.0); LYMPH # 0.8 10*3/uL (1.3-4.4); LYMPH % 13.9 % (27.0-41.0); MEAN CELL VOLUME 88.9 fl (81.0-99.0); MEAN CORPUSCULAR HGB 29.3 pg (27.0-31.0); MEAN CORPUSCULAR HGB CONC 32.9 g/dl (33.0-37.0); MEAN PLATELET VOLUME 10.1 fl (9.6-12.3); MONO # 0.6 10*3/uL (0.1-1.0); MONO % 9.7 % (3.0-9.0); NEUT # 4.5 10*3/uL (2.3-7.9); NEUT % 73.8 % (47.0-73.0); PLATELET COUNT AUTOMATED 161 10*3/uL (130-400); RED BLOOD COUNT 4.61 10*6/uL (4.10-5.10); RED CELL DISTRI WIDTH 13.8 % (0-14.5); WHITE BLOOD COUNT 6.1 10*3/uL (4.8-10.8)
[2020-02-09 08:37] LABS: ALBUMIN 3.6 gm/dl (3.1-4.5); CREATININE 1.28 mg/dL (0.55-1.02); POTASSIUM 3.6 mmol/L (3.5-5.1); TOTAL PROTEIN 7.8 gm/dL (6.4-8.2)
[2020-02-09 09:05] LABS: BACTERIA 3+; BILIRUBIN NEGATIVE (NEGATIVE); BLOOD 2+ (NEGATIVE); CLARITY SL CLOUDY (CLEAR); COLOR YELLOW (YELLOW); GLUCOSE NEGATIVE (NEGATIVE); KETONE NEGATIVE (NEGATIVE); LEUKO ESTERASE 2+ (NEGATIVE); NITRITE NEGATIVE (NEGATIVE); SPECIFIC GRAVITY 1.015 (1.005-1.030); UROBILINOGEN 0.2 E.U./dl (0.2-1.0); WBC TNTC wbc/hpf (0-5)
[2020-02-09] MEDS ORDERED: MACROBID100 M1 PO (10:08)
== END 2020-02-09 10:22 | disposition home or self-care (01) ==
LOC: ED 07:44
PROVIDERS: Emergency Medicine
DX: N39.0 Urinary tract infection, site not specified (principal); E11.9 Type 2 diabetes mellitus without complications; I48.91 Unspecified atrial fibrillation; E78.00 Pure hypercholesterolemia, unspecified; E03.9 Hypothyroidism, unspecified; I11.0 Hypertensive heart disease with heart failure; I50.9 Heart failure, unspecified; Z88.2 Allergy status to sulfonamides; Z88.1 Allergy status to other antibiotic agents; Z79.899 Other long term (current) drug therapy; Z79.01 Long term (current) use of anticoagulants; Z79.4 Long term (current) use of insulin; Z90.710 Acquired absence of both cervix and uterus; Z90.49 Acquired absence of other specified parts of digestive tract; Z95.0 Presence of cardiac pacemaker

== ENCOUNTER 2020-03-01 18:37 | Inpatient (IN) | payer MEDICARE ==
[~2020-03-01] VITALS: Ht 154.9 cm; Wt 71.2 kg
[2020-03-01 18:45] VITALS: BP 158/56
--- NOTE | 2020-03-01 18:50 | NUR ---
AT END OF TRIAGE, PT STATES SHE FEEL SOB NOW
[2020-03-01 19:13] LABS: BASO % 0.6 % (0.0-1.0); EOS # 0.2 10*3/uL (0.0-0.4); EOS % 2.3 % (1.0-4.0); HEMATOCRIT 40.7 % (37.0-47.0); LYMPH # 1.4 10*3/uL (1.3-4.4); LYMPH % 22.2 % (27.0-41.0); MEAN CELL VOLUME 89.8 fl (81.0-99.0); MEAN CORPUSCULAR HGB 29.8 pg (27.0-31.0); MEAN CORPUSCULAR HGB CONC 33.2 g/dl (33.0-37.0); MEAN PLATELET VOLUME 10.3 fl (9.6-12.3); MONO # 0.5 10*3/uL (0.1-1.0); NEUT # 4.3 10*3/uL (2.3-7.9); NEUT % 66.6 % (47.0-73.0); PLATELET COUNT AUTOMATED 174 10*3/uL (130-400); RED BLOOD COUNT 4.53 10*6/uL (4.10-5.10); RED CELL DISTRI WIDTH 13.7 % (0-14.5); WHITE BLOOD COUNT 6.4 10*3/uL (4.8-10.8)
[2020-03-01 19:25] LABS: ACT PARTIAL THROMBO TIME 35.5 SECONDS (20.0-32.1)
[2020-03-01 19:29] LABS: ALBUMIN 3.4 gm/dl (3.1-4.5); ALKALINE PHOSPHATASE 106 U/L (45-117); BUN 25 mg/dl (7-24); CHLORIDE 106 mmol/L (98-107); CREATININE 1.54 mg/dL (0.55-1.02); POTASSIUM 4.2 mmol/L (3.5-5.1); SGOT/AST 25 IU/L (3-35); SGPT/ALT 26 U/L (12-78); SODIUM 137 mmol/L (136-145); TOTAL PROTEIN 7.4 gm/dL (6.4-8.2)
[2020-03-01 19:31] LABS: TROPONIN I < 0.015 ng/ml (<0.045)
[2020-03-01 20:00] VITALS: BP 139/58
[2020-03-01 21:00] VITALS: BP 134/57
[2020-03-01 22:00] VITALS: BP 136/61
--- NOTE | 2020-03-01 23:20 | NUR ---
A 89, admitted to , under the services of NAHEED Burger DO with a diagnosis of CHF. Chief complaint is WEAKNESS, SOB, . Patient arrived via stretcher from ER. Monitor applied. Initial assessment completed. Vital signs taken and recorded. NAHEED BURGER DO notified of admission to the unit. Orders received. See assessment for past medical history, medications and allergies. Patient and/or family oriented to unit. [facility]LO[facility] visitation policy reviewed. Clothing/patient valuable form completed. MIRIAM IVORY
[2020-03-01 23:30] VITALS: BP 157/82
--- NOTE | 2020-03-02 02:30 | NUR ---
NOTIFIED DR. SOARES PATIENTS MED REC IS UP TO DATE.
--- NOTE | 2020-03-02 02:34 | NUR ---
DR. CAMARGO ANSWERING SERVICE NOTIFIED OF NEW CONSULT.
[2020-03-02 07:07] LABS: BASO % 0.4 % (0.0-1.0); EOS # 0.2 10*3/uL (0.0-0.4); EOS % 2.1 % (1.0-4.0); HEMATOCRIT 45.3 % (37.0-47.0); LYMPH # 1.2 10*3/uL (1.3-4.4); LYMPH % 15.2 % (27.0-41.0); MEAN CELL VOLUME 88.8 fl (81.0-99.0); MEAN CORPUSCULAR HGB CONC 32.7 g/dl (33.0-37.0); MEAN PLATELET VOLUME 10.4 fl (9.6-12.3); MONO # 0.7 10*3/uL (0.1-1.0); MONO % 8.9 % (3.0-9.0); NEUT # 5.5 10*3/uL (2.3-7.9); NEUT % 73.1 % (47.0-73.0); PLATELET COUNT AUTOMATED 174 10*3/uL (130-400); RED CELL DISTRI WIDTH 13.5 % (0-14.5); WHITE BLOOD COUNT 7.6 10*3/uL (4.8-10.8)
[2020-03-02 07:17] LABS: ALBUMIN 3.8 gm/dl (3.1-4.5); CREATININE 1.51 mg/dL (0.55-1.02); POTASSIUM 3.7 mmol/L (3.5-5.1); TOTAL PROTEIN 8.1 gm/dL (6.4-8.2)
[2020-03-02 07:36] LABS: INTERNATIONAL NORM RATIO 1.9 (2.0-3.5)
[2020-03-02 08:00] VITALS: BP 110/44
--- NOTE | 2020-03-02 09:00 | NUR ---
Jordan Man in to talk to patient. Patient states lives at home with alone. There are no steps in the home. Physician: makayla del castillo [facility] Home health services: none Patient's level of ADLs: INDEPENDENT Patient has working utilities: all working DME: none Follow-up physician's appointment after d/c: will be made by hospitalist sami director upon discharge Does patient want to access PORTAL?: no Discharge plan discussed with patient, she states she lives at home, gets around fine, will be returning home when discharged, discussed with her VNA and she declined any home services at this time, case management will follow for any home needs. SOHAM ALMARAZ
[2020-03-02 12:00] VITALS: BP 118/69
[2020-03-02 16:00] VITALS: BP 129/77
[2020-03-02 20:00] VITALS: BP 120/63
[2020-03-03] VITALS: BP 114/54
[2020-03-03 05:58] LABS: CREATININE 1.62 mg/dL (0.55-1.02); POTASSIUM 3.6 mmol/L (3.5-5.1)
[2020-03-03 08:00] VITALS: BP 120/56
--- NOTE | 2020-03-03 09:00 | NUR ---
case management visits with patient, she states she will return home when discharged and denies any home needs, case management will follow
[2020-03-03 12:00] VITALS: BP 120/54
--- NOTE | 2020-03-03 14:07 | NUR ---
Discharge instructions reviewed with patient. Patient receptive and verbalizes understanding. Follow-up care arranged. Written instructions given to patient. Pt is waiting on her ride to call and then she will put her light on.
--- NOTE | 2020-03-03 14:25 | NUR ---
Dc via wheelchair for pick up man out front by granddaughter.
== END 2020-03-03 14:25 | disposition home or self-care (01) | DRG 291 ==
LOC: ED 18:37 → EDHOLD 21:17 → 4E 21:17
PROVIDERS: Emergency Medicine; Hospitalist; Student in an Organized Health Care Education/Training Program; ADMIT Internal Medicine
DX: I13.0 Hypertensive heart and chronic kidney disease with heart failure and stage 1 through stage 4 chronic kidney disease, or unspecified chronic kidney disease (principal); I50.43 Acute on chronic combined systolic (congestive) and diastolic (congestive) heart failure; D68.59 Other primary thrombophilia; N18.3 Chronic kidney disease, stage 3 (moderate); I48.0 Paroxysmal atrial fibrillation; E10.65 Type 1 diabetes mellitus with hyperglycemia; E10.22 Type 1 diabetes mellitus with diabetic chronic kidney disease; E78.5 Hyperlipidemia, unspecified; E55.9 Vitamin D deficiency, unspecified; K44.9 Diaphragmatic hernia without obstruction or gangrene; E03.9 Hypothyroidism, unspecified; E66.9 Obesity, unspecified; I08.3 Combined rheumatic disorders of mitral, aortic and tricuspid valves; F41.9 Anxiety disorder, unspecified; K21.9 Gastro-esophageal reflux disease without esophagitis; Z79.01 Long term (current) use of anticoagulants; Z68.25 Body mass index [BMI] 25.0-25.9, adult; Z88.1 Allergy status to other antibiotic agents; Z88.2 Allergy status to sulfonamides; Z90.49 Acquired absence of other specified parts of digestive tract; Z90.711 Acquired absence of uterus with remaining cervical stump; Z98.42 Cataract extraction status, left eye; Z98.41 Cataract extraction status, right eye; Z95.0 Presence of cardiac pacemaker; Z83.3 Family history of diabetes mellitus; Z82.49 Family history of ischemic heart disease and other diseases of the circulatory system; Z79.899 Other long term (current) drug therapy

== ENCOUNTER 2020-07-31 11:30 | Observation (INO) | payer MEDICARE ==
[~2020-07-31] VITALS: Wt 68.5 kg
[2020-07-31 11:38] VITALS: BP 144/89
[2020-07-31 12:09] LABS: BASO % 0.3 % (0.0-1.0); HEMATOCRIT 41.7 % (37.0-47.0); LYMPH # 0.8 10*3/uL (1.3-4.4); LYMPH % 20.1 % (27.0-41.0); MEAN CELL VOLUME 87.4 fl (81.0-99.0); MEAN CORPUSCULAR HGB 28.7 pg (27.0-31.0); MEAN CORPUSCULAR HGB CONC 32.9 g/dl (33.0-37.0); MEAN PLATELET VOLUME 10.5 fl (9.6-12.3); MONO # 0.5 10*3/uL (0.1-1.0); MONO % 12.5 % (3.0-9.0); NEUT # 2.5 10*3/uL (2.3-7.9); NEUT % 65.6 % (47.0-73.0); PLATELET COUNT AUTOMATED 159 10*3/uL (130-400); RED BLOOD COUNT 4.77 10*6/uL (4.10-5.10); RED CELL DISTRI WIDTH 13.1 % (0-14.5); WHITE BLOOD COUNT 3.8 10*3/uL (4.8-10.8)
[2020-07-31 12:20] LABS: BILIRUBIN Negative (Negative); BLOOD Negative (Negative); CLARITY Clear (Clear); COLOR Yellow (Yellow); GLUCOSE Negative (Negative); KETONE Negative (Negative); LEUKO ESTERASE Negative (Negative); NITRITE Negative (Negative); PH 5.5 (4.5-8.0); UROBILINOGEN 0.2 E.U./dl (0.0-1.0)
[2020-07-31 12:20] LABS: ACT PARTIAL THROMBO TIME 40.7 SECONDS (20.0-32.1); INTERNATIONAL NORM RATIO 2.4 (2.0-3.5)
[2020-07-31 12:24] LABS: ALBUMIN 3.1 gm/dl (3.1-4.5); ALKALINE PHOSPHATASE 100 U/L (45-117); BUN 18 mg/dl (7-24); CHLORIDE 104 mmol/L (98-107); CREATININE 1.39 mg/dL (0.55-1.02); LIPASE 81 U/L (73-393); POTASSIUM 3.4 mmol/L (3.5-5.1); SGOT/AST 18 IU/L (3-35); SGPT/ALT 20 U/L (12-78); SODIUM 138 mmol/L (136-145); TOTAL PROTEIN 7.1 gm/dL (6.4-8.2)
[2020-07-31 12:29] LABS: TROPONIN I < 0.015 ng/ml (<0.045)
[2020-07-31 12:38] LABS: BACTERIA 2+
== END 2020-07-31 21:44 | disposition left against medical advice (07) ==
LOC: ED 11:30 → EDHOLD 17:06
PROVIDERS: Emergency Medicine; ADMIT Student in an Organized Health Care Education/Training Program; ATTEND Student in an Organized Health Care Education/Training Program
DX: R53.1 Weakness (principal); R26.81 Unsteadiness on feet; E87.6 Hypokalemia; N17.9 Acute kidney failure, unspecified; E11.65 Type 2 diabetes mellitus with hyperglycemia; I13.0 Hypertensive heart and chronic kidney disease with heart failure and stage 1 through stage 4 chronic kidney disease, or unspecified chronic kidney disease; I50.9 Heart failure, unspecified; N18.9 Chronic kidney disease, unspecified; I48.91 Unspecified atrial fibrillation; E78.5 Hyperlipidemia, unspecified; E55.9 Vitamin D deficiency, unspecified; K44.9 Diaphragmatic hernia without obstruction or gangrene; E03.9 Hypothyroidism, unspecified; F41.9 Anxiety disorder, unspecified; E66.9 Obesity, unspecified; K21.9 Gastro-esophageal reflux disease without esophagitis; Z20.828 Contact with and (suspected) exposure to other viral communicable diseases

== ENCOUNTER → 2020-10-20 | Outpatient (CLI) | payer MEDICARE ==
[2020-10-20 14:40] LABS: CREATININE 1.4 mg/dL (0.55-1.02); POTASSIUM 3.6 mmol/L (3.5-5.1)
== END | disposition home or self-care (01) ==
LOC: LAB 13:37
PROVIDERS: ATTEND Nurse Practitioner Family
DX: N18.30 Chronic kidney disease, stage 3 unspecified (principal); I50.9 Heart failure, unspecified; R60.0 Localized edema; E87.6 Hypokalemia

== ENCOUNTER → 2020-10-25 | Outpatient (CLI) | payer MEDICARE ==
[2020-10-25 16:14] LABS: CREATININE 1.36 mg/dL (0.55-1.02)
== END | disposition home or self-care (01) ==
LOC: LAB 15:34
PROVIDERS: ATTEND Nurse Practitioner Family
DX: I12.9 Hypertensive chronic kidney disease with stage 1 through stage 4 chronic kidney disease, or unspecified chronic kidney disease (principal); N18.32 Chronic kidney disease, stage 3b; E83.51 Hypocalcemia

== ENCOUNTER 2021-03-09 07:31 | Inpatient (IN) | payer MEDICARE ==
[~2021-03-09] VITALS: Ht 167.6 cm; Wt 71.2 kg
[2021-03-09 07:58] LABS: BASO % 0.6 % (0.0-1.0); EOS # 0.1 10*3/uL (0.0-0.4); EOS % 2.1 % (1.0-4.0); HEMATOCRIT 38.3 % (37.0-47.0); LYMPH # 0.9 10*3/uL (1.3-4.4); LYMPH % 17.7 % (27.0-41.0); MEAN CELL VOLUME 88.5 fl (81.0-99.0); MEAN CORPUSCULAR HGB 28.6 pg (27.0-31.0); MEAN CORPUSCULAR HGB CONC 32.4 g/dl (33.0-37.0); MEAN PLATELET VOLUME 10.6 fl (9.6-12.3); MONO # 0.5 10*3/uL (0.1-1.0); MONO % 8.7 % (3.0-9.0); NEUT # 3.8 10*3/uL (2.3-7.9); NEUT % 70.7 % (47.0-73.0); PLATELET COUNT AUTOMATED 157 10*3/uL (130-400); RED BLOOD COUNT 4.33 10*6/uL (4.10-5.10); RED CELL DISTRI WIDTH 14.2 % (0-14.5); WHITE BLOOD COUNT 5.3 10*3/uL (4.8-10.8)
[2021-03-09 08:15] LABS: ALBUMIN 3.3 gm/dl (3.1-4.5); ALKALINE PHOSPHATASE 132 U/L (45-117); BUN 22 mg/dl (7-24); CHLORIDE 105 mmol/L (98-107); CREATININE 1.39 mg/dL (0.55-1.02); POTASSIUM 4.1 mmol/L (3.5-5.1); SGOT/AST 15 IU/L (3-35); SGPT/ALT 21 U/L (12-78); SODIUM 138 mmol/L (136-145); TOTAL PROTEIN 7.1 gm/dL (6.4-8.2)
[2021-03-09 08:22] LABS: TROPONIN I < 0.015 ng/ml (<0.045)
[2021-03-09 09:26] VITALS: BP 160/99
[2021-03-09 11:17] LABS: INTERNATIONAL NORM RATIO 2.4 (2.0-3.5)
[2021-03-09 17:53] VITALS: BP 168/88
[2021-03-09 18:14] VITALS: BP 129/95
[2021-03-09 18:22] LABS: BILIRUBIN Negative (Negative); BLOOD Negative (Negative); CLARITY Clear (Clear); COLOR Yellow (Yellow); GLUCOSE Negative (Negative); KETONE Negative (Negative); LEUKO ESTERASE 2+ (Negative); NITRITE Negative (Negative); UROBILINOGEN 0.2 E.U./dl (0.0-1.0)
[2021-03-09 18:42] LABS: WBC 21-30 wbc/hpf (0-5)
[2021-03-09 18:43] LABS: BACTERIA 2+
[2021-03-09 20:00] VITALS: BP 157/81
[2021-03-10] VITALS: BP 134/56
[2021-03-10 06:06] LABS: BASO % 0.6 % (0.0-1.0); EOS # 0.1 10*3/uL (0.0-0.4); EOS % 2.9 % (1.0-4.0); LYMPH # 1.1 10*3/uL (1.3-4.4); MEAN CELL VOLUME 88.8 fl (81.0-99.0); MEAN CORPUSCULAR HGB CONC 32.6 g/dl (33.0-37.0); MEAN PLATELET VOLUME 10.8 fl (9.6-12.3); MONO # 0.6 10*3/uL (0.1-1.0); MONO % 11.9 % (3.0-9.0); NEUT % 62.4 % (47.0-73.0); PLATELET COUNT AUTOMATED 148 10*3/uL (130-400); RED BLOOD COUNT 4.28 10*6/uL (4.10-5.10); RED CELL DISTRI WIDTH 14.1 % (0-14.5); WHITE BLOOD COUNT 4.8 10*3/uL (4.8-10.8)
[2021-03-10 06:20] LABS: CREATININE 1.17 mg/dL (0.55-1.02)
[2021-03-10 11:05] LABS: POTASSIUM 3.9 mmol/L (3.5-5.1)
[2021-03-10 11:06] LABS: TOTAL PROTEIN 6.6 gm/dL (6.4-8.2)
[2021-03-10 12:00] VITALS: BP 125/64
[2021-03-10 16:00] VITALS: BP 151/84
[2021-03-10 20:00] VITALS: BP 148/70
[2021-03-11] VITALS: BP 129/79
[2021-03-11 06:29] LABS: CREATININE 1.21 mg/dL (0.55-1.02); POTASSIUM 4.3 mmol/L (3.5-5.1)
[2021-03-11 08:00] VITALS: BP 112/49
[2021-03-11] MEDS ORDERED: DOXYCYCLINE100 M3 PO (10:25)
== END 2021-03-11 11:53 | disposition home or self-care (01) | DRG 640 ==
LOC: ED 07:31 → EDHOLD 09:17 → 4E 17:54
PROVIDERS: Social Worker Clinical; Student in an Organized Health Care Education/Training Program; ADMIT Emergency Medicine; ATTEND Emergency Medicine
DX: E86.0 Dehydration (principal); N17.0 Acute kidney failure with tubular necrosis; N39.0 Urinary tract infection, site not specified; E44.0 Moderate protein-calorie malnutrition; I50.32 Chronic diastolic (congestive) heart failure; I48.21 Permanent atrial fibrillation; I13.0 Hypertensive heart and chronic kidney disease with heart failure and stage 1 through stage 4 chronic kidney disease, or unspecified chronic kidney disease; I95.1 Orthostatic hypotension; E11.65 Type 2 diabetes mellitus with hyperglycemia; E11.22 Type 2 diabetes mellitus with diabetic chronic kidney disease; R74.8 Abnormal levels of other serum enzymes; N18.9 Chronic kidney disease, unspecified; E83.41 Hypermagnesemia; E03.9 Hypothyroidism, unspecified; F41.9 Anxiety disorder, unspecified; K21.9 Gastro-esophageal reflux disease without esophagitis; E78.5 Hyperlipidemia, unspecified; B96.89 Other specified bacterial agents as the cause of diseases classified elsewhere; E11.51 Type 2 diabetes mellitus with diabetic peripheral angiopathy without gangrene; I35.0 Nonrheumatic aortic (valve) stenosis; Z95.0 Presence of cardiac pacemaker; Z79.4 Long term (current) use of insulin; Z88.2 Allergy status to sulfonamides; Z88.1 Allergy status to other antibiotic agents; Z90.49 Acquired absence of other specified parts of digestive tract; Z90.711 Acquired absence of uterus with remaining cervical stump; Z82.49 Family history of ischemic heart disease and other diseases of the circulatory system; Z83.3 Family history of diabetes mellitus; Z79.899 Other long term (current) drug therapy; Z79.01 Long term (current) use of anticoagulants; Z68.25 Body mass index [BMI] 25.0-25.9, adult

== ENCOUNTER → 2021-05-04 | Outpatient (CLI) | payer MEDICARE ==
[~2021-05-04] MED LIST changes: +DOXYCYCLINE100 M3 PO
[2021-05-04 14:28] LABS: BILIRUBIN Negative (Negative); BLOOD Trace-Lysed (Negative); CLARITY Clear (Clear); COLOR Yellow (Yellow); GLUCOSE Negative (Negative); KETONE Negative (Negative); LEUKO ESTERASE 2+ (Negative); NITRITE Negative (Negative); UROBILINOGEN 0.2 E.U./dl (0.0-1.0)
[2021-05-04 15:09] LABS: BACTERIA 1+; EPITHELIAL CELLS 0-2; WBC TNTC wbc/hpf (0-5)
== END | disposition home or self-care (01) ==
LOC: LAB 13:45
PROVIDERS: ATTEND Nurse Practitioner Family
DX: R30.0 Dysuria (principal)

== ENCOUNTER 2021-05-26 10:16 | Inpatient (IN) | payer MEDICARE ==
[~2021-05-26] VITALS: Ht 157.5 cm; Wt 73.6 kg
[2021-05-26 10:16] VITALS: BP 163/81
[2021-05-26 10:35] LABS: BASO % 0.5 % (0.0-1.0); EOS # 0.1 10*3/uL (0.0-0.4); EOS % 2.3 % (1.0-4.0); HEMATOCRIT 39.1 % (37.0-47.0); LYMPH # 0.8 10*3/uL (1.3-4.4); MEAN CELL VOLUME 88.1 fl (81.0-99.0); MEAN CORPUSCULAR HGB 28.8 pg (27.0-31.0); MEAN CORPUSCULAR HGB CONC 32.7 g/dl (33.0-37.0); MONO # 0.5 10*3/uL (0.1-1.0); MONO % 8.3 % (3.0-9.0); NEUT # 4.2 10*3/uL (2.3-7.9); NEUT % 74.7 % (47.0-73.0); PLATELET COUNT AUTOMATED 155 10*3/uL (130-400); RED BLOOD COUNT 4.44 10*6/uL (4.10-5.10); WHITE BLOOD COUNT 5.6 10*3/uL (4.8-10.8)
[2021-05-26 10:47] LABS: ACT PARTIAL THROMBO TIME 33.8 SECONDS (20.0-32.1); INTERNATIONAL NORM RATIO 1.9 (2.0-3.5)
[2021-05-26 10:53] LABS: ALBUMIN 3.2 gm/dl (3.1-4.5); CREATININE 1.35 mg/dL (0.55-1.02); POTASSIUM 3.8 mmol/L (3.5-5.1); TOTAL PROTEIN 7.2 gm/dL (6.4-8.2)
[2021-05-26 10:54] LABS: TROPONIN I 0.017 ng/ml (<0.045)
[2021-05-26] MEDS ORDERED: WARFARIN SODIUM4 MG PO (12:28)
[2021-05-26 12:40] LABS: BILIRUBIN Negative (Negative); BLOOD Negative (Negative); CLARITY Clear (Clear); COLOR Yellow (Yellow); GLUCOSE 2+ (Negative); KETONE Negative (Negative); LEUKO ESTERASE 1+ (Negative); NITRITE Negative (Negative); PH 6.5 (4.5-8.0); SPECIFIC GRAVITY 1.015 (1.001-1.030); UROBILINOGEN 0.2 E.U./dl (0.0-1.0)
[2021-05-26 12:45] LABS: BACTERIA 2+
[2021-05-26 12:46] LABS: EPITHELIAL CELLS 21-30; WBC 16-20 wbc/hpf (0-5)
[2021-05-26 13:38] VITALS: BP 171/71
[2021-05-26 15:27] VITALS: BP 155/84
[2021-05-26 17:33] VITALS: BP 136/63
[2021-05-26 20:00] VITALS: BP 122/57
[2021-05-27] VITALS: BP 124/47
[2021-05-27 06:10] LABS: BASO % 0.3 % (0.0-1.0); EOS # 0.1 10*3/uL (0.0-0.4); EOS % 1.9 % (1.0-4.0); HEMATOCRIT 37.1 % (37.0-47.0); LYMPH % 15.2 % (27.0-41.0); MEAN CELL VOLUME 88.1 fl (81.0-99.0); MEAN CORPUSCULAR HGB CONC 32.9 g/dl (33.0-37.0); MEAN PLATELET VOLUME 10.9 fl (9.6-12.3); MONO # 0.6 10*3/uL (0.1-1.0); MONO % 8.3 % (3.0-9.0); PLATELET COUNT AUTOMATED 164 10*3/uL (130-400); RED BLOOD COUNT 4.21 10*6/uL (4.10-5.10); WHITE BLOOD COUNT 6.8 10*3/uL (4.8-10.8)
[2021-05-27 06:20] LABS: ACT PARTIAL THROMBO TIME 34.4 SECONDS (20.0-32.1); INTERNATIONAL NORM RATIO 2.1 (2.0-3.5)
[2021-05-27 06:25] LABS: CREATININE 1.21 mg/dL (0.55-1.02); FREE T4 1.1 ng/dl (0.76-1.46); POTASSIUM 3.9 mmol/L (3.5-5.1)
[2021-05-27 06:34] LABS: THYROID STIM HORMONE (HS) 1.87 uIU/ml (0.358-4.75)
[2021-05-27 08:00] VITALS: BP 152/70
[2021-05-27 12:00] VITALS: BP 120/66
== END 2021-05-27 12:36 | disposition left against medical advice (07) | DRG 281 ==
LOC: ED 10:16 → EDHOLD 12:09 → 4E 14:55
PROVIDERS: Emergency Medicine; Student in an Organized Health Care Education/Training Program; ADMIT Emergency Medicine; ATTEND Emergency Medicine
DX: I21.4 Non-ST elevation (NSTEMI) myocardial infarction (principal); I48.21 Permanent atrial fibrillation; I13.0 Hypertensive heart and chronic kidney disease with heart failure and stage 1 through stage 4 chronic kidney disease, or unspecified chronic kidney disease; I50.32 Chronic diastolic (congestive) heart failure; E78.5 Hyperlipidemia, unspecified; E03.9 Hypothyroidism, unspecified; F41.9 Anxiety disorder, unspecified; N18.31 Chronic kidney disease, stage 3a; Z79.01 Long term (current) use of anticoagulants; E66.3 Overweight; Z95.0 Presence of cardiac pacemaker; E11.22 Type 2 diabetes mellitus with diabetic chronic kidney disease; Z79.4 Long term (current) use of insulin; E11.65 Type 2 diabetes mellitus with hyperglycemia; K21.9 Gastro-esophageal reflux disease without esophagitis; Z53.29 Procedure and treatment not carried out because of patient's decision for other reasons; F43.21 Adjustment disorder with depressed mood; Z90.710 Acquired absence of both cervix and uterus; Z90.49 Acquired absence of other specified parts of digestive tract; Z82.49 Family history of ischemic heart disease and other diseases of the circulatory system; Z79.899 Other long term (current) drug therapy; Z88.2 Allergy status to sulfonamides; Z88.1 Allergy status to other antibiotic agents; Z88.8 Allergy status to other drugs, medicaments and biological substances

== ENCOUNTER 2021-07-15 04:16 | Emergency (ER) | payer MEDICARE ==
[~2021-07-15] VITALS: Ht 157.4 cm; Wt 72.6 kg
[~2021-07-15 04:16] MED LIST changes: +WARFARIN SODIUM4 MG PO
[2021-07-15 04:19] VITALS: BP 152/70
[2021-07-15 04:39] LABS: BASO % 0.5 % (0.0-1.0); EOS # 0.2 10*3/uL (0.0-0.4); EOS % 3.6 % (1.0-4.0); HEMATOCRIT 37.1 % (37.0-47.0); LYMPH # 0.6 10*3/uL (1.3-4.4); LYMPH % 10.5 % (27.0-41.0); MEAN CELL VOLUME 91.8 fl (81.0-99.0); MEAN CORPUSCULAR HGB 29.5 pg (27.0-31.0); MEAN CORPUSCULAR HGB CONC 32.1 g/dl (33.0-37.0); MEAN PLATELET VOLUME 10.4 fl (9.6-12.3); MONO # 0.5 10*3/uL (0.1-1.0); MONO % 8.4 % (3.0-9.0); NEUT # 4.5 10*3/uL (2.3-7.9); NEUT % 76.7 % (47.0-73.0); PLATELET COUNT AUTOMATED 169 10*3/uL (130-400); RED BLOOD COUNT 4.04 10*6/uL (4.10-5.10); RED CELL DISTRI WIDTH 14.7 % (0-14.5); WHITE BLOOD COUNT 5.8 10*3/uL (4.8-10.8)
[2021-07-15 04:56] LABS: CREATININE 1.15 mg/dL (0.55-1.02); POTASSIUM 3.8 mmol/L (3.5-5.1)
[2021-07-15 04:57] LABS: BILIRUBIN Negative (Negative); BLOOD 1+ (Negative); CLARITY Clear (Clear); COLOR Yellow (Yellow); GLUCOSE 2+ (Negative); KETONE Negative (Negative); LEUKO ESTERASE 1+ (Negative); NITRITE Negative (Negative); PH 5.5 (4.5-8.0); SPECIFIC GRAVITY 1.015 (1.001-1.030); UROBILINOGEN 0.2 E.U./dl (0.0-1.0)
[2021-07-15 05:13] LABS: BACTERIA 1+; WBC 16-20 wbc/hpf (0-5)
== END 2021-07-15 07:30 | disposition home or self-care (01) ==
LOC: ED 04:16
PROVIDERS: Internal Medicine
DX: E11.65 Type 2 diabetes mellitus with hyperglycemia (principal); I13.0 Hypertensive heart and chronic kidney disease with heart failure and stage 1 through stage 4 chronic kidney disease, or unspecified chronic kidney disease; E11.22 Type 2 diabetes mellitus with diabetic chronic kidney disease; N18.32 Chronic kidney disease, stage 3b; E78.00 Pure hypercholesterolemia, unspecified; E03.9 Hypothyroidism, unspecified